=== PATIENT | female | born 1950 | race Caucasian/White ===

== ENCOUNTER 2017-02-11 16:12 | Emergency (ER) | payer MEDICARE, MEDICAID ==
[~2017-02-11] VITALS: Ht 162.6 cm; Wt 81.6 kg
--- NOTE | 2017-02-11 16:20 | NUR ---
BBPA [facility] C/O OF LEFT HIP AND LEFT FLANK PAIN DENIES FALL. NOTED WITH MULTIPLE COMPLAINTS- WHEEZING, SOB. SATING AT 95% RA. AT BS FOR EVAL. VSS. SAFETY AND COMFORT MEASURES PROVIDED. WILL MONITOR.
[2017-02-11 16:30] LABS: BASOPHILS # (AUTO) 0.1 /CMM (0.0-0.2); BASOPHILS % (AUTO) 0.9 % (0.0-2.0); EOSINOPHILS # (AUTO) 0.1 /CMM (0.0-0.7); EOSINOPHILS % (AUTO) 1.5 % (0.0-6.0); HEMATOCRIT 40 % (33-45); HEMOGLOBIN 13.5 g/dL (11.5-14.8); LYMPHOCYTES % (AUTO) 32.6 % (20.0-44.0); MEAN CORPUSCULAR HEMOGLOBIN 31 PG (26.0-33.0); MEAN CORPUSCULAR HGB CONC 34 g/dl (31.0-36.0); MEAN CORPUSCULAR VOLUME 93 fL (82-100); MONOCYTES # (AUTO) 0.7 /CMM (0.1-1.30); MONOCYTES % (AUTO) 7.7 % (2.0-12.0); NEUTROPHILS # (AUTO) 5.4 /CMM (1.8-8.9); NEUTROPHILS % (AUTO) 57.3 % (43.0-81.0); PLATELET COUNT (AUTO) 144 /CMM (150-450); RDW COEFFICIENT OF VARIATION 12.8 (11.5-15.0); RED BLOOD CELL COUNT(AUTO) 4.32 MIL/uL (4.0-5.2); WHITE BLOOD COUNT (AUTO) 9.3 K/uL (4.3-11.0)
[2017-02-11] MEDS ORDERED: methylPREDNISolone SOD SUCC 125 MG/2ML VIAL IV ONE (16:30)
[2017-02-11] MEDS ORDERED: IPRATROPIUM NEB FS 0.5 MG/2.5 ML AMPUL.NEB NEB ONE (16:30)
[2017-02-11] MEDS ORDERED: ALBUTEROL FS 2.5 MG/3 ML VIAL.NEB CONTNEB ONE (16:30)
--- NOTE | 2017-02-11 16:30 | NUR ---
PT REFUSED EKG AND INFLUENZA SWAB. AWARE.
[2017-02-11] MEDS ORDERED: methylPREDNISolone SOD SUCC 125 MG/2ML VIAL ONE (16:37)
[2017-02-11 16:39] LABS: CALCIUM, SERUM 9.8 mg/dL (8.5-10.1); CARBON DIOXIDE 29 mmol/L (21-32); CHLORIDE 102 mmol/L (98-107); CREATININE 0.9 mg/dL (0.6-1.3); GLUCOSE 176 mg/dL (74-106); SODIUM SERUM 137 mmol/L (136-145); UREA NITROGEN, BLOOD 13 mg/dL (7-18)
[2017-02-11 16:47] LABS: TROPONIN I < 0.017 ng/mL (0.00-0.056)
[2017-02-11] MEDS ORDERED: IPRATROPIUM NEB FS 0.5 MG/2.5 ML AMPUL.NEB ONE (16:50)
[2017-02-11] MEDS ORDERED: ALBUTEROL FS 2.5 MG/3 ML VIAL.NEB ONE (16:50)
--- NOTE | 2017-02-11 16:50 | NUR ---
RT AT BS- PT REFUSED BREATHING TX.
[2017-02-11 16:52] LABS: B-TYPE NATRIURETIC PEPTIDE 184 PG/ML (0-125)
--- NOTE | 2017-02-11 16:56 | NUR ---
RT NOTE: ALBUTEROL AND ATROVENT DISPENSED AND PLACED ON PATIENT BUT SHE IMMEDIATELY REMOVED TX. PATIENT REFUSES TREATMENT AND THE PLACEMENT OF SP02 MONITOR. NURSE AWARE. Addendum: 02/11/17 at 1751 by DAY STOCK RT ALSO NOTIFIED PHARMACY. ZAKIA STATES THAT NO ACTION ON eMAR IS REQUIRED.
--- NOTE | 2017-02-11 17:15 | NUR ---
IV removed. Catheter intact and site benign. Pressure and 4x4 applied to site. No bleeding noted.
--- NOTE | 2017-02-11 17:57 | NUR ---
CALLED [facility] AND SPOKE TO JOEL DOAN 184 (TRIP#[id number]).
--- NOTE | 2017-02-11 18:52 | NUR ---
PT D/C BACK TO [facility]. STABLE CONDITION.
[2017-02-11 18:54] VITALS: BP 125/66
== END 2017-02-11 18:55 | disposition home or self-care (01) ==
LOC: ER 16:16
DX: R06.02 Shortness of breath (principal); E11.9 Type 2 diabetes mellitus without complications; F31.9 Bipolar disorder, unspecified; I10 Essential (primary) hypertension; J45.909 Unspecified asthma, uncomplicated; Z88.6 Allergy status to analgesic agent; Z88.8 Allergy status to other drugs, medicaments and biological substances
CPT/HCPCS: 36415; 71010; 80048; 83880; 84484; 85025; 93005; 96374; 99285; A4606; J2930; Z7610

== ENCOUNTER 2022-07-06 21:53 | Inpatient (IN) | payer MEDICARE, OTHER ==
[~2022-07-06] VITALS: Ht 165.1 cm; Wt 74.6 kg
--- NOTE | 2022-07-06 22:22 | NUR ---
SADIA FROM [facility], CC OF FEVER, SEPSIS, ALOC RA 78%, 15LPM NRB 98%, BS 555, pt to bed 8, placed on monitor. on 15l nonrbr. pending er provder jovanaal
[2022-07-06] MEDS ORDERED: VANCOMYCIN 1 GM in IV D5W 250 ML IV ONE (22:30)
[2022-07-06] MEDS ORDERED: CEFEPIME 2 GM in IV D5W 50 ML IV ONE (22:30)
[2022-07-06] MEDS ORDERED: VANCOMYCIN 1 GM VIAL ONE (22:38)
[2022-07-06] MEDS ORDERED: CEFEPIME 1 GM VIAL ONE ×2 (22:38→22:44)
--- NOTE | 2022-07-06 22:44 | NUR ---
pt to ct
[2022-07-06] MEDS ORDERED: ACETAMINOPHEN 650 MG/SUPP.RECT RC ONE ×2 (23:00→23:22)
[2022-07-06 23:32] LABS: BASOPHILS % (AUTO) 0.1 % (0.0-2.0); HEMATOCRIT 42 % (33-45); HEMOGLOBIN 13.7 g/dL (11.5-14.8); LYMPHOCYTES # (AUTO) 1.1 K/uL (0.8-4.8); MEAN CORPUSCULAR HGB CONC 33 g/dl (31.0-36.0); MEAN CORPUSCULAR VOLUME 97 fL (82-100); MONOCYTES # (AUTO) 2.5 K/uL (0.1-1.30); NEUTROPHILS # (AUTO) 12.2 K/uL (1.8-8.9); NEUTROPHILS % (AUTO) 76.9 % (43.0-81.0); PLATELET COUNT (AUTO) 310 K/uL (150-450); RED BLOOD CELL COUNT(AUTO) 4.31 MIL/uL (4.0-5.2); WHITE BLOOD COUNT (AUTO) 15.8 K/uL (4.3-11.0)
--- NOTE | 2022-07-06 23:33 | NUR ---
URINE AND COVID ANTIGEN SWAB COLLECTED AND SENT TO LAB
[2022-07-06 23:51] LABS: CALCIUM, SERUM 12.5 mg/dL (8.5-10.1); CARBON DIOXIDE 23 mmol/L (21-32); CHLORIDE 110 mmol/L (98-107); CREATININE 1.4 mg/dL (0.6-1.3); SODIUM SERUM 143 mmol/L (136-145); UREA NITROGEN, BLOOD 47 mg/dL (7-18)
[2022-07-06 23:54] LABS: GLUCOSE 476 mg/dL (74-106)
[2022-07-07] MEDS ORDERED: IV NS 0.9% 500 ML IV ONE
[2022-07-07 00:01] LABS: ALANINE AMINOTRANSFERASE 16 U/L (12-78); ALBUMIN 2.1 g/dL (3.4-5.0); ALKALINE PHOSPHATASE 89 U/L (46-116); ASPARTATE AMINOTRANSFERASE 22 U/L (15-37); BILIRUBIN,DIRECT 0.2 mg/dL (0.0-0.2); BILIRUBIN,TOTAL 0.4 mg/dL (0.2-1.0); TOTAL PROTEIN, SERUM 6.9 g/dL (6.4-8.2)
[2022-07-07 00:06] LABS: BILIRUBIN,URINE NEGATIVE (NEGATIVE); COLOR,URINE YELLOW (YELLOW); LEUKOCYTE ESTERASE ,URINE NEGATIVE (NEGATIVE); NITRITE, URINE NEGATIVE (NEGATIVE); PROTEIN,URINE NEGATIVE (NEGATIVE); UGLUCOSE 3+ mg/dL (NEGATIVE)
[2022-07-07 00:27] LABS: BACTERIA,URINE Rare /HPF (None Seen); RBC,URINE 0-2 /HPF (0-2); SQUAMOUS EPITHELIAL CELL,UR Few /HPF (None Seen)
[2022-07-07] MEDS ORDERED: IOHEXOL-350 100 ML VIAL IV ONE ×3 (00:43→01:22)
[2022-07-07] MEDS ORDERED: IV NS 0.9% 250 ML IV ONE ×2 (00:43→01:22)
[2022-07-07] MEDS ORDERED: CT SWABBABLE VALVE TRANS SET 1 EA INFUS.SET MC ONE (00:43)
[2022-07-07 01:15] LABS: THYROID STIMULATING HORMONE < 0.007 uIU/mL (0.358-3.74)
[2022-07-07 01:36] LABS: MAGNESIUM 2.3 mg/dL (1.8-2.4)
--- NOTE | 2022-07-07 03:17 | NUR ---
report given to bharat anthony
--- NOTE | 2022-07-07 03:42 | NUR ---
pt transported to 3rd floor
--- NOTE | 2022-07-07 04:30 | NUR ---
CHIP TESTEREGG SETTER NOTE ADMITTED THIS PATIENT FROM ER [facility] WITH ER STAFF @ 0350 WITH DIAGNOSIS OF SEPSIS. PATIENT IS AWAKE, ALERT AND ORIENTED X 1. ON O2 INHALATION @ 2 LPM VIA NASAL CANNULA SATURATING @ 92%. ON EXTERNAL CARDIAC MONITORING WHICH READS SINUS TACHYCARDIA HR-119 BPM. WITH IV ACCESS ON RIGHT AC 18g; PATENT, INTACT AND SALINE LOCKED. BODY AND SKIN ASSESSMENT DONE; PICTURES TAKEN AND PLACED TO CHART. WOUND CARE CONSULT ORDERED. NEEDS ANTICIPATED. ORIENTED TO STAFF, ROOM AND UNIT. INVENTORY OF PERSONAL BELONGINGS DONE. SAFETY PRECAUTIONS IMPLEMENTED: HEAD OF BED ELEVATED, CALL LIGHT AND TABLE WITHIN REACH, SIDE RAILS UP X 3, BED IN LOWEST AND LOCKED POSITION. WILL CONTINUE TO MONITOR THROUGHOUT SHIFT.
--- NOTE | 2022-07-07 05:55 | NUR ---
RN NOTE CALLED RAPID RESPONSE TEAM. PATIENT IS DESATURATING FROM 92 TO 88% AND DIFFICULT TO AROUSE. O2 INHALATION INCREASED TO 6 LPM; SATING @ 97%. BLOOD SUGAR CHECKED: 410 MG/DL. VY MANE NP MADE AWARE. WITH ORDERS MADE AND CARRIED OUT. ABG DONE. PATIENT FOR CT OF THE HEAD WO CONTRAST. WILL CONTINUE TO MONITOR PATIENT.
[2022-07-07] MEDS ORDERED: ACETAMINOPHEN 325 MG TABLET PO PRN (06:00)
[2022-07-07] MEDS ORDERED: DEXTROSE 50%-WATER 50 ML DISP.SYRIN IV PRN ×2 (06:00→10:30)
[2022-07-07] MEDS ORDERED: IV NS 0.9% 1,000 ML IV PRN (06:00)
[2022-07-07] MEDS ORDERED: MAG HYDROX/AL HYDROX/SIMETH 30 ML UDC PO PRN (06:00)
[2022-07-07] MEDS ORDERED: ONDANSETRON HCL/PF 4 MG/2 ML VIAL IVP PRN (06:00)
[2022-07-07 06:18] LABS: ABG BASE EXCESS -2.6 mmol/L; ABG OXYGEN SATURATION 95.3 % (92.0-98.5); ABG PCO2 37.6 mmHg (35.0-45.0); ABG PH 7.385 (7.350-7.450); ABG PO2 82.7 mmHg (75.0-100.0); AaDO2 188.2 mmHg; COHb 0.9 % (0.5-1.5); MetHb 0.2 % (0.0-1.5); O2Hb 94.3 % (94.0-97.0); SITE, ABG Right Radial; VENT MODE, BG NASAL CANNULA 44%
[2022-07-07] MEDS: INSULIN REGULAR, HUMAN 100 UNIT/ML 3 ML VIAL SQ PRN ×4 (06:41→16:36)
[2022-07-07] MEDS ORDERED: BLOOD SUGAR DIAGNOSTIC 1 EACH STRIP IN SCH (07:30)
--- NOTE | 2022-07-07 07:30 | NUR ---
UPSET OPERATOR CLOSING NOTE PATIENT IS ASLEEP; AROUSABLE TO PAIN STIMULI. ALERT AND ORIENTED X 1 WHEN AWAKE. STILL ON O2 INHALATION @ 6 LPM VIA NASAL CANNULA SATURATING @ 97%. ON EXTERNAL CARDIAC MONITORING WHICH READS SINUS TACHYCARDIA HR-109 BPM. WITH IV ACCESS ON RIGHT AC 18g; PATENT AND INTACT INFUSING WITH NS 1L REGULATED @ 75 ML/HR; FLUSHES WELL. SAFETY PRECAUTIONS MAINTAINED: HEAD OF BED ELEVATED, CALL LIGHT AND TABLE WITHIN REACH, SIDE RAILS UP X 3, BED IN LOWEST AND LOCKED POSITION. ENDORSED TO JASON DIXON FOR VVIIAN.
[2022-07-07] MEDS: ENOXAPARIN SODIUM 40 MG/0.4 ML DISP.SYRIN SQ SCH (07:32)
--- NOTE | 2022-07-07 07:33 | NUR ---
RN OPENING NOTE RECEIVED PATIENT IN BED LETHARGIC, AROUSABLE TO PAINFUL STIMULI. ON O2 INHALATION @6LPM VIA N/C. NO SOB NOTED, BREATHING EVEN AND UNLABORED. ON CARDIAC MONITORING SHOWING SINUS TACH HR @109. NO S/SX OF ACUTE DISTRESS NOTED. NOTED WITH IV ACCESS ON LEFT AC #18G, INTACT AND PATENT WITH NS @75 ML/HR RUNNING. SAFETY MEASURE IN PLACE. BED IN LOW AND LOCKED POSITION, SIDE RAILS UP X2, CALL LIGHT PLACED WITHIN EASY REACH. WILL CONTINUE TO MONITOR PATIENT.
[2022-07-07 08:00] VITALS: BP 136/69
[2022-07-07 08:18] LABS: BASOPHILS # (AUTO) 0.1 K/uL (0.0-0.2); BASOPHILS % (AUTO) 0.4 % (0.0-2.0); HEMATOCRIT 41 % (33-45); HEMOGLOBIN 12.8 g/dL (11.5-14.8); LYMPHOCYTES # (AUTO) 0.7 K/uL (0.8-4.8); LYMPHOCYTES % (AUTO) 4.6 % (20.0-44.0); MEAN CORPUSCULAR HGB CONC 32 g/dl (31.0-36.0); MEAN CORPUSCULAR VOLUME 100 fL (82-100); MONOCYTES # (AUTO) 1.6 K/uL (0.1-1.30); MONOCYTES % (AUTO) 10.1 % (2.0-12.0); NEUTROPHILS # (AUTO) 13.8 K/uL (1.8-8.9); NEUTROPHILS % (AUTO) 84.9 % (43.0-81.0); PLATELET COUNT (AUTO) 277 K/uL (150-450); RED BLOOD CELL COUNT(AUTO) 4.08 MIL/uL (4.0-5.2); WHITE BLOOD COUNT (AUTO) 16.2 K/uL (4.3-11.0)
[2022-07-07 08:29] LABS: CALCIUM, SERUM 12.7 mg/dL (8.5-10.1); CARBON DIOXIDE 23 mmol/L (21-32); CHLORIDE 113 mmol/L (98-107); SODIUM SERUM 146 mmol/L (136-145); UREA NITROGEN, BLOOD 49 mg/dL (7-18)
[2022-07-07 08:34] LABS: GLUCOSE 467 mg/dL (74-106)
[2022-07-07] MEDS: CEFEPIME 2 GM in IV D5W 100 ML IV SCH ×2 (09:30→20:58)
--- NOTE | 2022-07-07 10:04 | NUR ---
WOUND CARE CONSULT: PT PRESENTS WITH SACRAL DEEP TISSUE INJURY EXTENDING TO BUTTOCKS WELL RT HEEL INTACT BLISTER, PRESENT ON ADMISSION. DR ZAIN ROBERT CALLED FOR SURGICAL CONSULT AND DR BRITO FOR DPM CONSULT. DISCUSSED SKIN PROTECTION AND WOUND CARE RECOMMENDATIONS WITH NURSING STAFF. PT TO BE PLACED ON TANYA ISOFLEX LOW AIRLOSS BED. IN AGREEMENT WITH PLAN OF CARE. Addendum: 07/07/22 at 1005 by VÍCTOR SARMIENTO WNDNU Amended: Links added.
[2022-07-07] MEDS: BLOOD SUGAR DIAGNOSTIC 1 EACH STRIP VI SCH ×3 (11:24→21:53)
[2022-07-07] MEDS: IV 1/2NS 1000 ML 1,000 ML IV PRN (11:50)
[2022-07-07] MEDS: VANCOMYCIN HCL 0.75 GM in IV D5W 250 ML IV SCH ×2 (11:51→23:39)
[2022-07-07] MEDS ORDERED: PROSOURCE / PROSTAT (PYXIS) 30 ML UDC GT SCH (13:00)
[2022-07-07 16:00] VITALS: BP 107/70
[2022-07-07] MEDS: PROSOURCE / PROSTAT (PYXIS) 30 ML UDC PO SCH (17:00)
--- NOTE | 2022-07-07 19:00 | NUR ---
RN CLOSING NOTE PATIENT IN BED ASLEEP, NOW EASILY AROUSED. REMAINS ON O2 INHALATION @6LPM VIA N/C. NO SOB NOTED, BREATHING EVEN AND UNLABORED. NOTED WITH OCCASIONAL COUGH, SUCTIONED ORAL SECRETIONS NEEDED. CONTINUE ON CARDIAC MONITORING SHOWING SINUS TACH HR @109. NO S/SX OF ACUTE DISTRESS NOTED. WITH IV ACCESS ON RIGHT HAND #22G, INTACT AND PATENT WITH NS @75 ML/HR RUNNING. SAFETY MEASURE MAINTAINED. HOB ELEVATED AT 40 DEGREES. BED IN LOW AND LOCKED POSITION, SIDE RAILS UP X2, CALL LIGHT PLACED WITHIN EASY REACH. WILL ENDORSE TO NEXT SHIFT FOR VIVIAN.
--- NOTE | 2022-07-07 19:30 | NUR ---
MOBILE EQUIPMENT MECHANIC OPENING NOTES - RECEIVED PATIENT SLEEPING, OPENS EYES ON DEEP PAIN, LETHARGIC. BREATHING EVEN AND NON-LABORED, ON O2 AT 6LPM VIA NASAL CANULA. NOT IN APPARENT DISTRESS. NO PAIN OR DISCOMFORT NOTED AT THIS TIME. ON TELE MONITOR READING SINUS TACHYCARDIA AT 112 BPM. HAS RIGHT HAND IV ACCESS #22G WITH 0.45%NS RUNNING AT 75 ML/HR. NO S/S OF INFILTRATION NOTED. HOB ELEVATED AT 40 DEGREES. SAFETY MEASURES IN PLACE: BED LOCKED AND IN LOW POSITION, SIDE RAILS UP X2, CALL LIGHT WITHIN REACH. WILL CONTINUE PLAN OF CARE.
[2022-07-07 20:00] VITALS: BP 142/67
[2022-07-07] MEDS: *INSULIN REGULAR(HUMULIN R)HUM 100 UNIT/ML VIAL SQ PRN (21:57)
[2022-07-08] VITALS (7 sets, daily range): BP systolic 130–153; BP diastolic 64–76
[2022-07-08] MEDS: ENOXAPARIN SODIUM 40 MG/0.4 ML DISP.SYRIN SQ SCH (06:15)
[2022-07-08] MEDS: IV 1/2NS 1000 ML 1,000 ML IV PRN ×2 (06:17→21:12)
[2022-07-08] MEDS: INSULIN REGULAR, HUMAN 100 UNIT/ML 3 ML VIAL SQ PRN ×3 (06:33→17:54)
--- NOTE | 2022-07-08 06:44 | NUR ---
JASON NOTES: BLOOD SUGAR- 95/ NO INSULIN GIVEN PER SLIDING SCALE. Addendum: 07/08/22 at 0659 by KALEY REID RN WRONG POSTING INTENDED FOR PATIENT [id number]
[2022-07-08] MEDS: BLOOD SUGAR DIAGNOSTIC 1 EACH STRIP VI SCH ×4 (06:45→22:13)
--- NOTE | 2022-07-08 06:57 | NUR ---
FIRE PREVENTION ENGINEER CLOSING NOTES - PATIENT SLEEPING, OPENS EYES WHEN NAME IS CALLED. HOB KEPT AT 40 DEGREES. NO CARDIAC OR RESPIRATORY DISTRESS. AFEBRILE. SATURATING AT 95-97% ON 6LPM VIA NASAL CANULA. ON TELE MONITOR READING SINUS TACHYCARDIA AT 123 BPM. RIGHT HAND IV ACCESS INTACT, PATENT AND FLUSHING. TURNED AND REPOSITIONED EVERY 2 HOURS. ALL DUE MEDS GIVEN AND NEEDS ATTENDED. SAFETY MEASURES MAINTAINED. WILL ENDORSE TO NEXT SHIFT FOR VIVIAN.
--- NOTE | 2022-07-08 06:59 | NUR ---
RN NOTES: BLOOD SUGAR-308/ 12 UNITS INSULIN GIVEN PER SLIDING SCALE,
--- NOTE | 2022-07-08 07:00 | NUR ---
BRANCH ACCOUNT MANAGER CLOSING NOTES: PATIENT SLEEP IN BED COMFORTABLY, AROUSABLE TO VERBAL STIMULI, BED IN LOW POSITION CALL LIGHTS WITHIN WITHIN REACH, NO COMPLAIN OF PAIN AND DISCOMFORT AT THIS TIME, ON O2 INHALATION AT 4LPM SATURATING WELL, PATIENT ON TELE MONITOR- SR-115/ NO CHANGES HAS BEEN OBSERVED, IV LINE AT RIGHT HAND#22 WITH ONGOING 0.45NSS@75ML/HR INFUSING WELL, PATIENT TO REMAIN UPRIGHT WITH DOL170 DEGREE AT ALL TIME, ON ASPIRATION PRECAUTION, PATIENT KEPT CLEAN AND DRY ALL NEEDS MET ENDORSE TO INCOMING SHIFT.
[2022-07-08 07:16] LABS: BASOPHILS % (AUTO) 0.2 % (0.0-2.0); EOSINOPHILS % (AUTO) 0.1 % (0.0-6.0); HEMATOCRIT 35 % (33-45); HEMOGLOBIN 11.6 g/dL (11.5-14.8); LYMPHOCYTES # (AUTO) 1.4 K/uL (0.8-4.8); LYMPHOCYTES % (AUTO) 12.1 % (20.0-44.0); MEAN CORPUSCULAR HGB CONC 33 g/dl (31.0-36.0); MEAN CORPUSCULAR VOLUME 96 fL (82-100); MONOCYTES % (AUTO) 8.2 % (2.0-12.0); NEUTROPHILS # (AUTO) 9.3 K/uL (1.8-8.9); NEUTROPHILS % (AUTO) 79.4 % (43.0-81.0); PLATELET COUNT (AUTO) 199 K/uL (150-450); RED BLOOD CELL COUNT(AUTO) 3.65 MIL/uL (4.0-5.2); WHITE BLOOD COUNT (AUTO) 11.7 K/uL (4.3-11.0)
--- NOTE | 2022-07-08 07:30 | NUR ---
CONTRACTS REPRESENTATIVE OPENING NOTES: RECEIVED PATIENT SLEEPING IN BED COMFORTABLY, AO X0, LETHARGIC, AROUSABLE TO VERBAL STIMULI, BED IN LOW POSITION CALL LIGHTS WITHIN WITHIN REACH, NO SIGNS OF PAIN AND DISCOMFORT AT THIS TIME, ON O2 INHALATION AT 4LPM SATURATING WELL, NO SIGNS OF RESPIRATORY DISTRESS, PATIENT ON TELE MONITOR- ST-115/ NO CHANGES HAS BEEN OBSERVED, IV LINE AT RIGHT HAND#22 WITH ONGOING 0.45NSS@75ML/HR INFUSING WELL, PATIENT TO REMAIN UPRIGHT WITH HOB ELEVATED 45 DEGREES AT ALL TIME, ON ASPIRATION PRECAUTION, PATIENT KEPT CLEAN AND DRY. WILL ADMINISTER SCHEDULED MEDS PRESCRIBED.
[2022-07-08 07:35] LABS: CALCIUM, SERUM 12.2 mg/dL (8.5-10.1); CREATININE 0.8 mg/dL (0.6-1.3); MAGNESIUM 1.5 mg/dL (1.8-2.4); PHOSPHORUS 1.6 mg/dL (2.5-4.9); POTASSIUM 4.6 mmol/L (3.5-5.1)
[2022-07-08] MEDS: CEFEPIME 2 GM in IV D5W 100 ML IV SCH ×2 (08:35→21:11)
[2022-07-08] MEDS: PROSOURCE / PROSTAT (PYXIS) 30 ML UDC PO SCH ×3 (09:04→17:38)
[2022-07-08] MEDS ORDERED: MAGNESIUM OXIDE 400 MG TABLET PO ONE (10:30)
[2022-07-08] MEDS: VANCOMYCIN HCL 0.75 GM in IV D5W 250 ML IV SCH (11:30)
--- NOTE | 2022-07-08 12:49 | NUR ---
PT SEEN AND EXAMINED BY IRASEMA CHOI. JIMBO AWARE OF PT BLOOD GLUCOSE RESULTS. NO FURTHER ORDERS GIVEN.
[2022-07-08] MEDS ORDERED: BISA10SU11 RC (14:10)
[2022-07-08] MEDS ORDERED: LISI10TA29 PO (14:10)
[2022-07-08] MEDS ORDERED: METF-440 PO (14:10)
[2022-07-08] MEDS ORDERED: RISP0.2515 PO (14:10)
[2022-07-08] MEDS ORDERED: DIVA-76 PO (14:10)
[2022-07-08] MEDS ORDERED: DIVA-78 PO (14:10)
[2022-07-08] MEDS ORDERED: MONT10TA22 PO (14:10)
[2022-07-08] MEDS ORDERED: DOCU-141 PO (14:10)
[2022-07-08] MEDS ORDERED: ZOLP5TAB8 PO (14:10)
[2022-07-08] MEDS ORDERED: INSU100V28 SQ (14:10)
[2022-07-08] MEDS ORDERED: NA P133E RC (14:10)
[2022-07-08] MEDS ORDERED: INSU100V7 SQ (14:10)
[2022-07-08] MEDS ORDERED: HYDR-3980 PO (14:10)
[2022-07-08] MEDS ORDERED: MAGN400O6 PO (14:10)
[2022-07-08] MEDS ORDERED: POLY17PO4 PO (14:10)
[2022-07-08] MEDS ORDERED: ACET-868 PO (14:10)
[2022-07-08] MEDS ORDERED: FLUT16SP (14:10)
[2022-07-08] MEDS ORDERED: K PHOS NEUTRAL 250 MG TABLET PO ONE ×2 (15:30)
[2022-07-08] MEDS ORDERED: NA PHOS,M-B/NA PHOS,DI-BA 1 EA ENEMA RC PRN (15:30)
[2022-07-08] MEDS ORDERED: MAGNESIUM HYDROXIDE 30 ML UDC PO PRN (15:30)
[2022-07-08] MEDS ORDERED: BISACODYL SUPP (10 MG) 10 MG/SUPP.RECT SUPP.RECT RC PRN (15:30)
[2022-07-08] MEDS ORDERED: ACETAMINOPHEN 325 MG TABLET PO PRN (15:30)
[2022-07-08] MEDS: DOCUSATE SODIUM 100 MG CAPSULE PO SCH (17:38)
[2022-07-08] MEDS: FLUTICASONE PROPIONATE 16 GM BOTTLE NS SCH (17:42)
[2022-07-08] MEDS ORDERED: METOPROLOL TARTRATE INJ 5 MG/5 ML AMPUL IVP ONE (18:00)
--- NOTE | 2022-07-08 19:13 | NUR ---
SORORITY MOTHER NOTES PT IN BED, LETHARGIC, AROUSABLE, IV FLUIDS INFUSING WELL, NO SIGN OF PAIN, NOTED HR AT 130s, DR. BUCIO INFORMED, ORDERED METOPROLOL IV ONCE BUT PER PHARMACY, MED CANNOT BE ADMINISTERED IN TELE FLOOR, DR. BUCIO INFORMED AND CHANGED DOSE TO PO, PER DR. PITTMAN, PT IS COVID POSITIVE FROM HER TEST IN HER SNF, PT WAS RAPID NEGATIVE AT THE E.R., AWAITING BED FROM [facility], DR. BUCIO INFORMED, PLACED PT IN ISOLATION PRECAUTIONS, KEPT HOB ELEVATED, ON O2 AT 6LPM VIA N/C, WITH O2 SAT OF 94%, AFEBRILE AT THIS TIME, PM CARE PROVIDED, KEPT COMFORTABLE, WILL ENDORSE TO BOAT PULLER RN FOR VIVIAN.
--- NOTE | 2022-07-08 19:15 | NUR ---
RN opening notes Received Pt from morning nurse. Pt is resting in bed comfortably. Pt is alert and oriented and lethargic. On 6 L NC. No SOB. No S/S of distress noted. tele monitor showed s.tachy HR at 144. Simin Beth MD is aware and informed per am nurse. Pt is covid positive per am nurse. IV site at R hand # 20 is clean, intact and infuising well 1/2ns@ 75 ml/hr. safety precautions is maintained. Bed at low position, brakes locked, side rails upX2, hob elevated, bed alarm is on and call light is within reach. awaiting for bed in [facility]. will continue to monitor.
[2022-07-08] MEDS ORDERED: METOPROLOL TARTRATE 25 MG TABLET PO ONE (19:30)
--- NOTE | 2022-07-08 19:45 | NUR ---
RN notes Charge nurse informed to transfer Pt to room 105 [facility].
--- NOTE | 2022-07-08 20:08 | NUR ---
RN notes administered metoprolol as ordered one time for HR 144. BP 150/76.
--- NOTE | 2022-07-08 20:29 | NUR ---
RN notes Report given to Silas RN [facility] nurse for VIVIAN. Pt transfer to room 105.
--- NOTE | 2022-07-08 20:50 | NUR ---
RN notes Transferred Pt to room 105 with ACLS protocol. report given to JASON Rosen.
--- NOTE | 2022-07-08 20:50 | NUR ---
KATHRINE note Received pt via [email or web address], accompanied by 2 RNs, o2 via NC @ 6L, breathing even and unlabored, 0 s/s of pain, isolation protocol noted, pt transfeer Addendum: 07/08/22 at 2322 by JOE DANG LVN * transferred to room 105, bed bath given at this time, VS stable, safety precautions in place
--- NOTE | 2022-07-08 21:10 | NUR ---
0 Received patient from via bed for r/o covid. Placed patient in room 105 and connected to wall O2 at 6 liters via NC. Vital signs taken and recorded. O2 sat at 96%. Noted with temp of 101.3. Complete bed bath provided and placed on cooling measures. Patient tolerated procedure well. HOB elevated for maximum oxygenation. New IV access inserted on left hand. Kept comfortable. Placed on covid isolation pending PCR result. Patient being closely monitored.
[2022-07-08] MEDS: LISINOPRIL (10MG) 10 MG TABLET PO SCH (21:57)
[2022-07-08] MEDS: MONTELUKAST SODIUM (10MG) 10 MG TABLET PO SCH (21:57)
[2022-07-08] MEDS: *INSULIN REGULAR(HUMULIN R)HUM 100 UNIT/ML VIAL SQ PRN (22:17)
[2022-07-09] MEDS: VANCOMYCIN HCL 0.75 GM in IV D5W 250 ML IV SCH (00:24)
[2022-07-09] MEDS: ENOXAPARIN SODIUM 40 MG/0.4 ML DISP.SYRIN SQ SCH (05:56)
--- NOTE | 2022-07-09 05:57 | NUR ---
kenneth banegas for bleeding on surgical incision wound Addendum: 07/09/22 at 0648 by JOE DANG LVN WRONG PT
--- NOTE | 2022-07-09 06:49 | NUR ---
ENGINEER SECOND ASSISTANT CLOSING NOTE PT RESTING IN BED, AFEBRILE, BREATHING EVEN AND UNLABORED, ON O2 VIA NC, NAD NOTED AT THIS TIME, ALL DUE MEDS GIVEN PER MD ORDERS, TOLERATED WELL, ALL BASIC NEEDS MET AND ANTICIPATED, ALL SAFETY PRECAUTIONS IN PLACE, WILL CONTINUE TO MONITOR
[2022-07-09] MEDS: BLOOD SUGAR DIAGNOSTIC 1 EACH STRIP VI SCH ×4 (07:48→22:08)
[2022-07-09 07:59] LABS: CALCIUM, SERUM 11.6 mg/dL (8.5-10.1); CARBON DIOXIDE 29 mmol/L (21-32); CHLORIDE 114 mmol/L (98-107); CREATININE 0.8 mg/dL (0.6-1.3); GLUCOSE 273 mg/dL (74-106); PHOSPHORUS 2.7 mg/dL (2.5-4.9); POTASSIUM 4.6 mmol/L (3.5-5.1); SODIUM SERUM 148 mmol/L (136-145); UREA NITROGEN, BLOOD 41 mg/dL (7-18)
[2022-07-09 08:03] LABS: BASOPHILS % (AUTO) 0.2 % (0.0-2.0); EOSINOPHILS % (AUTO) 0.1 % (0.0-6.0); HEMATOCRIT 38 % (33-45); HEMOGLOBIN 12.5 g/dL (11.5-14.8); LYMPHOCYTES # (AUTO) 1.2 K/uL (0.8-4.8); LYMPHOCYTES % (AUTO) 15.6 % (20.0-44.0); MEAN CORPUSCULAR HGB CONC 33 g/dl (31.0-36.0); MEAN CORPUSCULAR VOLUME 96 fL (82-100); MONOCYTES # (AUTO) 0.8 K/uL (0.1-1.30); MONOCYTES % (AUTO) 10.6 % (2.0-12.0); NEUTROPHILS # (AUTO) 5.7 K/uL (1.8-8.9); NEUTROPHILS % (AUTO) 73.5 % (43.0-81.0); PLATELET COUNT (AUTO) 169 K/uL (150-450); RED BLOOD CELL COUNT(AUTO) 4.01 MIL/uL (4.0-5.2); WHITE BLOOD COUNT (AUTO) 7.8 K/uL (4.3-11.0)
[2022-07-09] MEDS: IV 1/2NS 1000 ML 1,000 ML IV PRN (08:16)
[2022-07-09] MEDS: DOCUSATE SODIUM 100 MG CAPSULE PO SCH (08:23)
[2022-07-09] MEDS: FLUTICASONE PROPIONATE 16 GM BOTTLE NS SCH ×2 (08:23→17:19)
[2022-07-09] MEDS: CEFEPIME 2 GM in IV D5W 100 ML IV SCH ×2 (08:23→22:07)
[2022-07-09] MEDS: POLYETHYLENE GLYCOL 3350 17 GM POWD.PACK PO SCH (08:24)
[2022-07-09] MEDS: PROSOURCE / PROSTAT (PYXIS) 30 ML UDC PO SCH ×3 (09:00→17:00)
[2022-07-09] MEDS: INSULIN REGULAR, HUMAN 100 UNIT/ML 3 ML VIAL SQ PRN ×2 (09:30→15:01)
[2022-07-09] MEDS ORDERED: VANCOMYCIN 1 GM in IV D5W 250 ML IV SCH (10:00)
--- NOTE | 2022-07-09 10:18 | NUR ---
CONFIRMED, PATIENT IS COVID POSITIVE AT THIS TIME
[2022-07-09] MEDS ORDERED: REMDESIVIR (CHARGED) 200 MG, *LOADING DOSE 1 EA in IV NS 0.9% 210 ML IV ONE ×2 (11:30→12:30)
[2022-07-09 13:08] LABS: ALKALINE PHOSPHATASE 997 U/L (46-116); ASPARTATE AMINOTRANSFERASE 17 U/L (15-37); BILIRUBIN,TOTAL 0.3 mg/dL (0.2-1.0); C-REACTIVE PROTEIN 7.3 mg/dL (0.0-0.9); CALCIUM, SERUM 11.5 mg/dL (8.5-10.1); CARBON DIOXIDE 24 mmol/L (21-32); CHLORIDE 113 mmol/L (98-107); CREATININE 0.8 mg/dL (0.6-1.3); POTASSIUM 4.1 mmol/L (3.5-5.1); SODIUM SERUM 145 mmol/L (136-145); UREA NITROGEN, BLOOD 42 mg/dL (7-18)
[2022-07-09 13:09] LABS: ALANINE AMINOTRANSFERASE 16 U/L (12-78); ALBUMIN 1.9 g/dL (3.4-5.0)
[2022-07-09 13:11] LABS: GLUCOSE 393 mg/dL (74-106)
[2022-07-09] MEDS: DEXAMETHASONE SOD PHOSPHATE 10 MG/ML VIAL IV SCH (14:46)
[2022-07-09] MEDS ORDERED: ENOXAPARIN SODIUM 30 MG/0.3 ML DISP.SYRIN SQ SCH (15:00)
[2022-07-09] MEDS: GLUCERNA SHAKE 237 ML CAN PO SCH (17:23)
[2022-07-09] MEDS: DOCUSATE SODIUM LIQ 100 MG/10 ML UDC PO SCH (18:00)
[2022-07-09] MEDS: *INSULIN REGULAR(HUMULIN R)HUM 100 UNIT/ML VIAL SQ PRN ×2 (18:19→22:11)
--- NOTE | 2022-07-09 19:30 | NUR ---
RN NOTE Report received from Jackie GOMEZ. Patient in bed, on high hicks's, AO x 1, appears lethargic, saturation at 98% on 6L via NC, ST on the monitor, HR is 111. IV line at R hand 22g patent and flushing well, saline locked. Safety measures and aspiration precautions implemented, bed is locked and at lowest position, HOB elevated, call light within reach of patient. Will continue to monitor and reassess for changes.
--- NOTE | 2022-07-09 19:50 | NUR ---
RN CLOSING NOTE PT RESTING IN BED, AFEBRILE, BREATHING EVEN AND UNLABORED, ON O2 VIA 6L NC, ALL DUE MEDS GIVEN PER MD ORDERS, TOLERATED WELL, HOB ELEVATED AT 40 DEGREES. ALL BASIC NEEDS MET AND ANTICIPATED, ALL SAFETY PRECAUTIONS IN PLACE, WILL ENDORSE CONTINUITY OF CARE TO VISITOR SERVICE ASSISTANT.
[2022-07-09 20:00] VITALS: BP 114/66
[2022-07-09] MEDS ORDERED: ENOXAPARIN SODIUM 40 MG/0.4 ML DISP.SYRIN SQ SCH (21:00)
[2022-07-09] MEDS: LISINOPRIL (10MG) 10 MG TABLET PO SCH (22:08)
[2022-07-09] MEDS: METOPROLOL TARTRATE 25 MG TABLET PO SCH (22:08)
[2022-07-09] MEDS: MONTELUKAST SODIUM (10MG) 10 MG TABLET PO SCH (22:08)
[2022-07-10] VITALS: BP 146/88
[2022-07-10 04:00] VITALS: BP 119/72
[2022-07-10 07:15] LABS: EOSINOPHILS % (AUTO) 0.1 % (0.0-6.0); HEMATOCRIT 40 % (33-45); HEMOGLOBIN 12.6 g/dL (11.5-14.8); LYMPHOCYTES # (AUTO) 1.7 K/uL (0.8-4.8); LYMPHOCYTES % (AUTO) 16.3 % (20.0-44.0); MEAN CORPUSCULAR HGB CONC 32 g/dl (31.0-36.0); MEAN CORPUSCULAR VOLUME 99 fL (82-100); MONOCYTES # (AUTO) 1.1 K/uL (0.1-1.30); MONOCYTES % (AUTO) 10.4 % (2.0-12.0); NEUTROPHILS # (AUTO) 7.7 K/uL (1.8-8.9); NEUTROPHILS % (AUTO) 73.2 % (43.0-81.0); PLATELET COUNT (AUTO) 148 K/uL (150-450); RED BLOOD CELL COUNT(AUTO) 4.05 MIL/uL (4.0-5.2); WHITE BLOOD COUNT (AUTO) 10.4 K/uL (4.3-11.0)
--- NOTE | 2022-07-10 07:15 | NUR ---
RN OPEN TELE NOTE: AWAKE. ALERT TO NAME. RESPONSIVE TO VERBAL STIMULI. MOIST ORAL MUCOSA. ON 02 6 LITERS PER MINUTE SATING AT 96%. BIOMEDICAL ENGINEERING PROFESSOR SINUS TACHY 107. IN ON RIGHT HAND G22 PATENT. NO S/S OF COMPLICATIONS. PURE WICK ON WITH YELLOW URINE. HOB ELEVATED, BILATERAL HALF SIDE RAILS UPX2. BED IN LOW POSITION, LOCKED, AND EXIT ALARM ON. CALL LIGHT IN REACH.
[2022-07-10 08:00] VITALS: BP 139/72
[2022-07-10] MEDS: CEFEPIME 2 GM in IV D5W 100 ML IV SCH ×2 (08:16→21:26)
[2022-07-10] MEDS: BLOOD SUGAR DIAGNOSTIC 1 EACH STRIP VI SCH ×4 (08:16→21:37)
[2022-07-10] MEDS: GLUCERNA SHAKE 237 ML CAN PO SCH ×2 (08:17→17:31)
[2022-07-10] MEDS: INSULIN REGULAR, HUMAN 100 UNIT/ML 3 ML VIAL SQ PRN ×3 (08:18→17:56)
[2022-07-10 08:41] LABS: ALBUMIN 1.8 g/dL (3.4-5.0); BILIRUBIN,TOTAL 0.2 mg/dL (0.2-1.0); CREATININE 0.6 mg/dL (0.6-1.3); POTASSIUM 4.7 mmol/L (3.5-5.1); TOTAL PROTEIN, SERUM 5.8 g/dL (6.4-8.2)
[2022-07-10 08:49] LABS: CALCIUM, SERUM 11.7 mg/dL (8.5-10.1)
[2022-07-10] MEDS ORDERED: DEXAMETHASONE SOD PHOSPHATE 10 MG/ML VIAL IV SCH (09:00)
[2022-07-10 09:45] LABS: ALBUMIN 1.9 g/dL (3.4-5.0); BILIRUBIN,DIRECT 0.1 mg/dL (0.0-0.2); BILIRUBIN,TOTAL 0.2 mg/dL (0.2-1.0); TOTAL PROTEIN, SERUM 5.9 g/dL (6.4-8.2)
[2022-07-10 09:45] LABS: C-REACTIVE PROTEIN 4.5 mg/dL (0.0-0.9)
[2022-07-10] MEDS: DEXAMETHASONE SOD PHOSPHATE 10 MG/ML VIAL IV SCH (09:58)
[2022-07-10] MEDS: POLYETHYLENE GLYCOL 3350 17 GM POWD.PACK PO SCH (09:58)
[2022-07-10] MEDS: METOPROLOL TARTRATE 25 MG TABLET PO SCH ×2 (09:59→21:27)
[2022-07-10] MEDS: DOCUSATE SODIUM LIQ 100 MG/10 ML UDC PO SCH ×2 (09:59→17:31)
[2022-07-10] MEDS: PROSOURCE / PROSTAT (PYXIS) 30 ML UDC PO SCH ×3 (10:00→17:31)
[2022-07-10] MEDS: ENOXAPARIN SODIUM 40 MG/0.4 ML DISP.SYRIN SQ SCH (10:01)
[2022-07-10] MEDS: FLUTICASONE PROPIONATE 16 GM BOTTLE NS SCH ×2 (10:02→17:32)
[2022-07-10] MEDS ORDERED: REMDESIVIR (CHARGED) 100 MG in IV NS 0.9% 230 ML IV SCH (11:30)
[2022-07-10 12:00] VITALS: BP 135/68
[2022-07-10] MEDS: REMDESIVIR (CHARGED) 100 MG in IV NS 0.9% 230 ML IV SCH (12:56)
[2022-07-10 16:00] VITALS: BP 127/69
--- NOTE | 2022-07-10 18:50 | NUR ---
RN CLOSING TELE NOTE: AWAKE, RESPONSIVE TO VERBAL STIMULI. MOIST ORAL MUCOSA. ON 02 6LPM NC SATING AT 98%. TAXI TRUCK DRIVER SINUS TACHY 117. IN ON RIGHT HAND PATENT. NO S/S OF COMPLICATIONS. TOTAL CARE PROVIDED. HOB ELEVATED, BILATERAL HALF SIDE RAILS UP X2. BED IN LOW POSITION, LOCKED, EXIT ALARM ON, CALL LIGHT IN REACH.
--- NOTE | 2022-07-10 18:59 | NUR ---
MICROSOFT DEVELOPER CLOSING NOTE: ALERT TIMES FOUR. AWAKE. PALE. RESPIRATIONS ARE EVEN AND UNLABORED AT ROOM AIR, SATING AT 95%. MOIST ORAL MUCOSA. LONG WALL SHEAR OPERATOR SINUS RHYTHM 68. IV ON RIGHT AC G18 WITH NS 100 ML/HR. CONTINENT OF URINE, UA WAS COLLECTED, STILL FOR OB COLLECTION. PATIENT TO BE NPO AFTER MN FOR US PELVIC COMPLETE. VISITED BY FRIENDS AND FAMILY DURING DAY. SPOKE TO DANNIE AT BLOOD BANK AND STATED HE HAS THE BLOOD AND THAT HE IS JUST TESTING IT FOR SECOND UNIT PRBC'S, TO GIVE HIM 15-20 MINUTES, PATIENT INFORMED. HOB ELEVATED, BILATERAL HALF SIDE RAILS UP X2. BED IN LOW POSITION, LOCKED, EXIT ALARM ON, CALL LIGHT IN REACH. Addendum: 07/10/22 at 1905 by SOHAM HOPE RN WRONG PATIENT DOCUMENTATION.
--- NOTE | 2022-07-10 19:10 | NUR ---
RN NOTE RECEIVED PT FOR CONTINUITY OF CARE. PATIENT A/OX1 IN NO S/SX OF ACUTE DISTRESS AT THIS TIME; CURRENTLY ON 6L OF O2 VIA NC; WITH 02 SAT >95% AT THIS TIME. WITH IV ACCESS ON R HAND #22 AND L HAND 20 BOTH PATENT, INTACT AND FLUSHING WELL. WITH PUREWICK UTILIZED FOR INCONTINENCE MGT. WILL ENSURE SAFETY MEASURES WITHIN THE SHIFT. PATIENT BED ALARM IS ON. HEAD OF BED ELEVATED. BED IS LOCKED, IN LOWEST POSITION AND SIDE RAILS UP. CALL LIGHT WITHIN REACH OF THE PATIENT. APPLICABLE ISOLATION PRECAUTIONS IN PLACE. WILL CONTINUE TO MONITOR AND REASSESS FOR ANY CHANGES AND WILL CARRY OUT ANY ONGOING AND ACTIVE MD ORDER.
[2022-07-10 20:00] VITALS: BP 132/79
[2022-07-10] MEDS: LISINOPRIL (10MG) 10 MG TABLET PO SCH (21:27)
[2022-07-10] MEDS: MONTELUKAST SODIUM (10MG) 10 MG TABLET PO SCH (21:27)
[2022-07-10] MEDS: *INSULIN REGULAR(HUMULIN R)HUM 100 UNIT/ML VIAL SQ PRN (21:37)
[2022-07-11] VITALS: BP 138/73
[2022-07-11 04:00] VITALS: BP 126/75
--- NOTE | 2022-07-11 04:00 | NUR ---
RN NOTE PATIENT REMAINED TO BE IN NO SIGNS OF ACUTE RESPIRATORY DISTRESS , VITAL SIGNS STABLE AT THIS TIME. REGULAR TURNING AND REPOSITIONING DONE AND AM PATIENT CARE RENDERED WILL CONTINUE TO MONITOR AND REASSESS FOR ANY CHANGES THROUGHOUT THE SHIFT.
--- NOTE | 2022-07-11 06:41 | NUR ---
RN CLOSING NOTE: PATIENT REMAINS IN ROOM IN NO SIGNS OF RESPIRATORY DISTRESS, PATIENT STILL NOW ON 4L OF 02 VIA NC, TOLERATING WELL SATURATING @ >95% SP02. ON PUREED DIET. SAFETY MEASURES IMPLEMENTED, BED IN LOWEST POSITION, LOCKED, SIDE RAILS UP, CALL LIGHT WITHIN REACH. ALL NEEDS AND ORDERS ADDRESSED DURING THE SHIFT. IV ACCESS MAINTAINED INTACT, SECURED AND FLUSHING WELL. ALL DUE MEDS GIVEN ORDERED & SCHEDULED ; PATIENT TOLERATED WELL. PATIENT KEPT CLEAN AND COMFORTABLE WITHIN THE SHIFT. PATIENT ENDORSED TO INCOMING SHIFT RN WITH STABLE VITAL SIGN AND FOR CONTINUITY OF CARE.
--- NOTE | 2022-07-11 07:40 | NUR ---
STAFF PHYSICIAN OPENING NOTE REVEIVED PT IN BED. PT ALERT AND ORIENTED X1. ON TELE MONITOR SINUS TACHYCARDIA 101.NO SIGNS OF PAIN OR DISCOMFORT NOTED AT THIS TIME. PT ON 4L NASAL CANNULA TOLERATING AT 98%.PT HAS RIGHT HAND 22 GUAGE. IV INTACT, PATENT AND FLUSHING WELL. ALL SAFETY EMASURES IN PLACE. BED LOCKED AT LOWEST POSITION. SIDE RAILS UP X2. BED ALAMR ON.
[2022-07-11] MEDS: BLOOD SUGAR DIAGNOSTIC 1 EACH STRIP VI SCH ×4 (07:45→23:12)
[2022-07-11 08:00] VITALS: BP 140/77
[2022-07-11] MEDS: GLUCERNA SHAKE 237 ML CAN PO SCH ×2 (09:43→17:40)
[2022-07-11] MEDS: PROSOURCE / PROSTAT (PYXIS) 30 ML UDC PO SCH ×3 (09:43→17:47)
[2022-07-11] MEDS: DEXAMETHASONE SOD PHOSPHATE 10 MG/ML VIAL IV SCH (09:44)
[2022-07-11] MEDS: CEFEPIME 2 GM in IV D5W 100 ML IV SCH ×2 (09:44→21:51)
[2022-07-11] MEDS: POLYETHYLENE GLYCOL 3350 17 GM POWD.PACK PO SCH (09:44)
[2022-07-11] MEDS: DOCUSATE SODIUM LIQ 100 MG/10 ML UDC PO SCH ×2 (09:44→17:21)
[2022-07-11] MEDS: METOPROLOL TARTRATE 25 MG TABLET PO SCH ×2 (09:45→21:50)
[2022-07-11] MEDS: INSULIN REGULAR, HUMAN 100 UNIT/ML 3 ML VIAL SQ PRN ×3 (09:46→17:48)
[2022-07-11] MEDS: FLUTICASONE PROPIONATE 16 GM BOTTLE NS SCH ×2 (09:47→17:22)
--- NOTE | 2022-07-11 11:55 | NUR ---
rn note notified twisting machine operator malinda bishop for clarification if okay to continue giving lovenox 07/10 hgb 10.4, hct 40, and platelets 148. malinda bishop said okay to give
[2022-07-11 12:00] VITALS: BP 151/79
[2022-07-11] MEDS: REMDESIVIR (CHARGED) 100 MG in IV NS 0.9% 230 ML IV SCH (12:42)
[2022-07-11] MEDS: ENOXAPARIN SODIUM 40 MG/0.4 ML DISP.SYRIN SQ SCH (12:44)
[2022-07-11 14:46] LABS: BASOPHILS % (AUTO) 0.2 % (0.0-2.0); HEMATOCRIT 42 % (33-45); HEMOGLOBIN 13.1 g/dL (11.5-14.8); LYMPHOCYTES # (AUTO) 0.9 K/uL (0.8-4.8); LYMPHOCYTES % (AUTO) 8.1 % (20.0-44.0); MEAN CORPUSCULAR HGB CONC 31 g/dl (31.0-36.0); MEAN CORPUSCULAR VOLUME 101 fL (82-100); MONOCYTES # (AUTO) 0.4 K/uL (0.1-1.30); MONOCYTES % (AUTO) 3.1 % (2.0-12.0); NEUTROPHILS # (AUTO) 10.4 K/uL (1.8-8.9); NEUTROPHILS % (AUTO) 88.6 % (43.0-81.0); PLATELET COUNT (AUTO) 213 K/uL (150-450); WHITE BLOOD COUNT (AUTO) 11.7 K/uL (4.3-11.0)
[2022-07-11 15:09] LABS: ALBUMIN 2.2 g/dL (3.4-5.0); BILIRUBIN,DIRECT 0.1 mg/dL (0.0-0.2); BILIRUBIN,TOTAL 0.3 mg/dL (0.2-1.0); CALCIUM, SERUM 11.8 mg/dL (8.5-10.1); CREATININE 0.9 mg/dL (0.6-1.3); POTASSIUM 4.2 mmol/L (3.5-5.1); TOTAL PROTEIN, SERUM 6.5 g/dL (6.4-8.2)
[2022-07-11 15:21] LABS: C-REACTIVE PROTEIN 1.8 mg/dL (0.0-0.9)
--- NOTE | 2022-07-11 15:47 | NUR ---
lab called in stated that BS 464 primary nurse check finger stick BS 375 patient is on Decadron Simin notified and stated ok
[2022-07-11 16:00] VITALS: BP 130/63
--- NOTE | 2022-07-11 19:51 | NUR ---
EXHIBIT BUILDER CLOSING NOTE PT IN BED. HEAD OF BED ELEVATED. PT ALERT AND ORIENTED X1. ON TELE MONITOR SINUS TACHYCARDIA .NO SIGNS OF PAIN OR DISCOMFORT NOTED AT THIS TIME. PT ON 4L NASAL CANNULA TOLERATING AT 100%.PT HAS LEFT AC 22 GUAGE. IV INTACT, PATENT AND FLUSHING WELL. PT ON COVID ISOLATION PRECAUTIONS. ALL SAFETY EMASURES IN PLACE. BED LOCKED AT LOWEST POSITION. SIDE RAILS UP X2. BED ALAMR ON.ENDORSED TO AD OPERATIONS ASSOCIATE RN FOR CONTUITY OF CARE.
[2022-07-11 20:00] VITALS: BP 128/69
--- NOTE | 2022-07-11 20:01 | NUR ---
WARP DOFFER OPENING NOTE PATIENT AWAKE IN BED, ALERT/ORIENTED X 1. PATIENT ON TELE MONITOR READING SINUS TACHY, HR: 113. PATIENT STABLE ON 4 L OF O 2 VIA NASAL CANNULA, NO S/S OF DISTRESS OR SOB NOTED, BREATHING EVEN AND UNLABORED. IV ACCESS ON LAC #22G INTACT AND SALINE LOCKED. PUREWICK IN PLACE. SAFETY MEASURES IN PLACE: CALL LIGHT WITHIN REACH, SIDE RAILS UP X 3, BED LOCKED IN LOWEST POSITION, HOB ELEVATED, BED ALARM ON. DROPLET/CONTACT PRECAUTIONS IN PLACE. WILL CONTINUE TO MONITOR PATIENT
[2022-07-11] MEDS: MONTELUKAST SODIUM (10MG) 10 MG TABLET PO SCH (23:11)
[2022-07-11] MEDS: LISINOPRIL (10MG) 10 MG TABLET PO SCH (23:12)
[2022-07-11] MEDS: *INSULIN REGULAR(HUMULIN R)HUM 100 UNIT/ML VIAL SQ PRN (23:14)
[2022-07-12] VITALS: BP 119/65
[2022-07-12 04:00] VITALS: BP 133/73
[2022-07-12 06:14] LABS: BASOPHILS % (AUTO) 0.4 % (0.0-2.0); HEMATOCRIT 44 % (33-45); LYMPHOCYTES # (AUTO) 2.2 K/uL (0.8-4.8); LYMPHOCYTES % (AUTO) 17.7 % (20.0-44.0); MEAN CORPUSCULAR HGB CONC 32 g/dl (31.0-36.0); MEAN CORPUSCULAR VOLUME 97 fL (82-100); MONOCYTES % (AUTO) 8.1 % (2.0-12.0); NEUTROPHILS # (AUTO) 9.2 K/uL (1.8-8.9); NEUTROPHILS % (AUTO) 73.8 % (43.0-81.0); PLATELET COUNT (AUTO) 218 K/uL (150-450); RED BLOOD CELL COUNT(AUTO) 4.51 MIL/uL (4.0-5.2); WHITE BLOOD COUNT (AUTO) 12.5 K/uL (4.3-11.0)
[2022-07-12 06:50] LABS: ALBUMIN 2.3 g/dL (3.4-5.0); BILIRUBIN,DIRECT 0.1 mg/dL (0.0-0.2); BILIRUBIN,TOTAL 0.3 mg/dL (0.2-1.0); CALCIUM, SERUM 12.1 mg/dL (8.5-10.1); CREATININE 0.9 mg/dL (0.6-1.3); TOTAL PROTEIN, SERUM 6.6 g/dL (6.4-8.2)
--- NOTE | 2022-07-12 07:26 | NUR ---
LEARNING AND DEVELOPMENT ADMINISTRATOR CLOSING NOTE PATIENT AWAKE IN BED, ALERT/ORIENTED X 1. PATIENT ON TELE MONITOR READING SINUS TACHY, HR: 108. PATIENT TITRATED DOWN TO 3L OF O 2 VIA NASAL CANNULA, NO S/S OF DISTRESS OR SOB NOTED, BREATHING EVEN AND UNLABORED. IV ACCESS ON LAC #22G INTACT AND SALINE LOCKED. PUREWICK IN PLACE WITH 500 ML OUTPUT. MEDICATIONS GIVEN ORDERED, PT NEEDS MET THROUGHOUT SHIFT, NO SIGNIFICANT CHANGES THIS SHIFT. SAFETY MEASURES IN PLACE: CALL LIGHT WITHIN REACH, SIDE RAILS UP X 3, BED LOCKED IN LOWEST POSITION, HOB ELEVATED, BED ALARM ON. DROPLET/CONTACT PRECAUTIONS MAINTAINED. ENDORSED TO DAYSHIFT RN FOR CONTINUITY OF CARE
[2022-07-12] MEDS: GLUCERNA SHAKE 237 ML CAN PO SCH ×2 (07:29→16:16)
[2022-07-12] MEDS: BLOOD SUGAR DIAGNOSTIC 1 EACH STRIP VI SCH ×4 (07:47→22:35)
[2022-07-12] MEDS: *INSULIN REGULAR(HUMULIN R)HUM 100 UNIT/ML VIAL SQ PRN ×3 (07:50→22:39)
--- NOTE | 2022-07-12 07:55 | NUR ---
SERVICE TEAM LEADER OPENING NOTE PATIENT AWAKE IN BED, ALERT/ORIENTED X 1. PATIENT ON TELE MONITOR READING SR. PATIENT STABLE ON 3L OF O 2 VIA NASAL CANNULA, NO S/S OF DISTRESS OR SOB NOTED, BREATHING EVEN AND NON LABORED. IV ACCESS ON LAC #22G INTACT AND SALINE LOCKED. PUREWICK IN PLACE, DRAINING URINE. SAFETY MEASURES IN PLACE: CALL LIGHT WITHIN REACH, SIDE RAILS UP X 3, BED LOCKED IN LOWEST POSITION, HOB ELEVATED, BED ALARM ON. DROPLET/CONTACT PRECAUTIONS IN PLACE. WILL CONTINUE TO MONITOR.
[2022-07-12 08:00] VITALS: BP 140/66
[2022-07-12] MEDS: CEFEPIME 2 GM in IV D5W 100 ML IV SCH ×2 (08:12→20:07)
[2022-07-12] MEDS: PROSOURCE / PROSTAT (PYXIS) 30 ML UDC PO SCH ×3 (08:14→16:16)
[2022-07-12] MEDS: POLYETHYLENE GLYCOL 3350 17 GM POWD.PACK PO SCH (08:15)
[2022-07-12] MEDS: DEXAMETHASONE SOD PHOSPHATE 10 MG/ML VIAL IV SCH (08:16)
[2022-07-12] MEDS: DOCUSATE SODIUM LIQ 100 MG/10 ML UDC PO SCH ×2 (08:16→16:16)
[2022-07-12 08:18] LABS: C-REACTIVE PROTEIN 1.3 mg/dL (0.0-0.9)
[2022-07-12] MEDS: ENOXAPARIN SODIUM 40 MG/0.4 ML DISP.SYRIN SQ SCH (08:18)
[2022-07-12] MEDS: METOPROLOL TARTRATE 25 MG TABLET PO SCH ×2 (08:21→20:12)
[2022-07-12] MEDS: FLUTICASONE PROPIONATE 16 GM BOTTLE NS SCH ×2 (08:52→16:16)
[2022-07-12 12:00] VITALS: BP 131/65
[2022-07-12] MEDS: REMDESIVIR (CHARGED) 100 MG in IV NS 0.9% 230 ML IV SCH (13:14)
[2022-07-12 16:00] VITALS: BP 113/60
[2022-07-12] MEDS: INSULIN REGULAR, HUMAN 100 UNIT/ML 3 ML VIAL SQ PRN (17:16)
--- NOTE | 2022-07-12 18:45 | NUR ---
COMMUNITY ENGAGEMENT REPRESENTATIVE CLOSING NOTE PATIENT RESTING IN BED. A/OX1. PATIENT ON EXTERNAL LIGHT COIL WINDER READING ST, HR: 104. PATIENT IS ON 3L OF O2 VIA NC, NO S/S OF DISTRESS OR SOB NOTED, BREATHING EVEN AND NON LABORED. IV ACCESS ON LAC #22G INTACT, SALINE LOCKED. PUREWICK IN PLACE WITH 700 ML OUTPUT. MEDICATIONS GIVEN ORDERED, PT NEEDS MET THROUGHOUT SHIFT. SAFETY MEASURES IN PLACE: CALL LIGHT WITHIN REACH, SIDE RAILS UP X 3, BED LOCKED IN LOWEST POSITION, HOB ELEVATED, BED ALARM ON. DROPLET/CONTACT PRECAUTIONS MAINTAINED. ENDORSED TO ONCOMING RN FOR VIVIAN.
[2022-07-12 20:00] VITALS: BP 123/68
[2022-07-12] MEDS ORDERED: INSULIN GLARGINE, 100 UNIT/ML CARTRIDGE SQ SCH (22:00)
[2022-07-12] MEDS: MONTELUKAST SODIUM (10MG) 10 MG TABLET PO SCH (22:43)
[2022-07-12] MEDS: LISINOPRIL (10MG) 10 MG TABLET PO SCH (23:55)
[2022-07-13] VITALS: BP 114/65
[2022-07-13 04:00] VITALS: BP 125/71
--- NOTE | 2022-07-13 05:51 | NUR ---
END OF SHIFT REPORT Patient in bed, Alert Oriented x1 to self only. Oxygen sat high 90's in 2L NC. Sinus rhythm in the playground monitor HR 74. IV Left arm intact. On IV abx. Afebrile during the night. Bld gucose monitored, given insulin per sliding parameters. On Remdesivir day 4 today. Turned and repositioned q2h. Wound dressing done. Off load heels at all times. Plan continue abx. Wean down oxygen as tolerated. Will endorse to oncoming RN.
--- NOTE | 2022-07-13 07:10 | NUR ---
HAND TUFTER OPENING NOTES PATIENT RECEIVED IN BED, ASLEEP. ON 3L NC. ON TELE MONITOR. IV ACCESS ON LAC 22G INTACT AND PATENT RUNNING ANTIBIOTIC. SAFETY PRECAUTIONS IN PLACE, WITH BED IN LOWEST AND LOCKED POSITION, HEAD OF BED ELEVATED, BED RAILS UP X3, AND CALL LIGHT AND BEDSIDE TABLE WITHIN REACH. WILL CONTINUE TO MONITOR.
[2022-07-13 07:26] LABS: BASOPHILS # (AUTO) 0.1 K/uL (0.0-0.2); BASOPHILS % (AUTO) 0.8 % (0.0-2.0); EOSINOPHILS % (AUTO) 0.3 % (0.0-6.0); HEMATOCRIT 41 % (33-45); HEMOGLOBIN 13.2 g/dL (11.5-14.8); LYMPHOCYTES # (AUTO) 2.2 K/uL (0.8-4.8); LYMPHOCYTES % (AUTO) 18.7 % (20.0-44.0); MEAN CORPUSCULAR HGB CONC 32 g/dl (31.0-36.0); MEAN CORPUSCULAR VOLUME 97 fL (82-100); MONOCYTES # (AUTO) 0.8 K/uL (0.1-1.30); NEUTROPHILS # (AUTO) 8.7 K/uL (1.8-8.9); NEUTROPHILS % (AUTO) 73.2 % (43.0-81.0); PLATELET COUNT (AUTO) 216 K/uL (150-450); RED BLOOD CELL COUNT(AUTO) 4.22 MIL/uL (4.0-5.2); WHITE BLOOD COUNT (AUTO) 11.9 K/uL (4.3-11.0)
[2022-07-13 08:00] VITALS: BP 141/77
[2022-07-13] MEDS: GLUCERNA SHAKE 237 ML CAN PO SCH ×2 (08:00→17:07)
[2022-07-13] MEDS: CEFEPIME 2 GM in IV D5W 100 ML IV SCH (08:30)
[2022-07-13] MEDS: POLYETHYLENE GLYCOL 3350 17 GM POWD.PACK PO SCH (08:30)
[2022-07-13] MEDS: ENOXAPARIN SODIUM 40 MG/0.4 ML DISP.SYRIN SQ SCH (08:33)
[2022-07-13] MEDS: DEXAMETHASONE SOD PHOSPHATE 10 MG/ML VIAL IV SCH (08:34)
[2022-07-13] MEDS: DOCUSATE SODIUM LIQ 100 MG/10 ML UDC PO SCH ×2 (08:35→16:22)
[2022-07-13] MEDS: METOPROLOL TARTRATE 25 MG TABLET PO SCH ×2 (08:37→21:02)
[2022-07-13] MEDS: PROSOURCE / PROSTAT (PYXIS) 30 ML UDC PO SCH ×3 (08:38→16:22)
[2022-07-13] MEDS: BLOOD SUGAR DIAGNOSTIC 1 EACH STRIP VI SCH ×4 (09:18→22:29)
[2022-07-13] MEDS: *INSULIN REGULAR(HUMULIN R)HUM 100 UNIT/ML VIAL SQ PRN ×4 (09:19→22:38)
[2022-07-13] MEDS: FLUTICASONE PROPIONATE 16 GM BOTTLE NS SCH ×2 (09:21→16:22)
[2022-07-13 09:50] LABS: ALBUMIN 2.2 g/dL (3.4-5.0); BILIRUBIN,DIRECT 0.1 mg/dL (0.0-0.2); BILIRUBIN,TOTAL 0.4 mg/dL (0.2-1.0); CREATININE 0.8 mg/dL (0.6-1.3); POTASSIUM 3.6 mmol/L (3.5-5.1); TOTAL PROTEIN, SERUM 6.2 g/dL (6.4-8.2)
[2022-07-13] MEDS: INSULIN GLARGINE, 100 UNIT/ML CARTRIDGE SQ SCH ×2 (10:35→16:56)
--- NOTE | 2022-07-13 11:00 | NUR ---
PATIENT KEEPS REMOVING NC.
[2022-07-13 12:00] VITALS: BP 135/70
[2022-07-13] MEDS: REMDESIVIR (CHARGED) 100 MG in IV NS 0.9% 230 ML IV SCH (13:38)
[2022-07-13 16:00] VITALS: BP 127/67
--- NOTE | 2022-07-13 19:00 | NUR ---
PRINT BUYER CLOSING NOTES PATIENT IN BED, SLEEPING INTERMITTENTLY. ALERT AND ORIENTED TO SELF ONLY. ON 4L NC SATTING AT 96%. ON TELE MONITOR READING 130 SINUS TACHYCARDIA. IV ACCESS ON LAC 22G INTACT AND PATENT. PATIENT ON PUREWICK DRAINING CLEAR, YELLOW COLORED URINE. ALL DUE MEDS GIVEN. SAFETY PRECAUTIONS IN PLACE, WITH BED IN LOWEST AND LOCKED POSITION, HEAD OF BED ELEVATED, BED RAILS UP X3, AND CALL LIGHT AND BEDSIDE TABLE WITHIN REACH. WILL ENDORSE TO ONCOMING SHIFT FOR VIVIAN.
--- NOTE | 2022-07-13 19:58 | NUR ---
noc rn opening note received patient in bed. a/oxo. confused. no s/s of apparent distress on 3lpm of o2 via nc. denies pain. patient on purewick. l.ac #22g on saline lock, intact and patent. reading st with [address]-- bed in lowest, locked position, bed alarms in place, aspiration precaution in place. will continue with patient's plan of care.
[2022-07-13 20:00] VITALS: BP 112/61
[2022-07-13] MEDS: MONTELUKAST SODIUM (10MG) 10 MG TABLET PO SCH (22:19)
[2022-07-13] MEDS: LISINOPRIL (10MG) 10 MG TABLET PO SCH (22:19)
[2022-07-14] VITALS: BP 131/68
[2022-07-14 04:00] VITALS: BP 104/56
[2022-07-14 06:31] LABS: BASOPHILS # (AUTO) 0.1 K/uL (0.0-0.2); BASOPHILS % (AUTO) 0.4 % (0.0-2.0); HEMATOCRIT 44 % (33-45); HEMOGLOBIN 13.9 g/dL (11.5-14.8); LYMPHOCYTES # (AUTO) 2.4 K/uL (0.8-4.8); LYMPHOCYTES % (AUTO) 11.5 % (20.0-44.0); MEAN CORPUSCULAR HGB CONC 32 g/dl (31.0-36.0); MEAN CORPUSCULAR VOLUME 98 fL (82-100); NEUTROPHILS # (AUTO) 17.4 K/uL (1.8-8.9); NEUTROPHILS % (AUTO) 82.1 % (43.0-81.0); PLATELET COUNT (AUTO) 249 K/uL (150-450); RED BLOOD CELL COUNT(AUTO) 4.49 MIL/uL (4.0-5.2); WHITE BLOOD COUNT (AUTO) 21.2 K/uL (4.3-11.0)
[2022-07-14 06:41] LABS: ALANINE AMINOTRANSFERASE 32 U/L (12-78); ALBUMIN 1.9 g/dL (3.4-5.0); ALKALINE PHOSPHATASE 126 U/L (46-116); ASPARTATE AMINOTRANSFERASE 40 U/L (15-37); BILIRUBIN,TOTAL 0.6 mg/dL (0.2-1.0); CARBON DIOXIDE 23 mmol/L (21-32); CHLORIDE 116 mmol/L (98-107); CREATININE 0.6 mg/dL (0.6-1.3); GLUCOSE 225 mg/dL (74-106); POTASSIUM 4.7 mmol/L (3.5-5.1); SODIUM SERUM 145 mmol/L (136-145); TOTAL PROTEIN, SERUM 6.1 g/dL (6.4-8.2); UREA NITROGEN, BLOOD 48 mg/dL (7-18)
[2022-07-14] MEDS: BLOOD SUGAR DIAGNOSTIC 1 EACH STRIP VI SCH ×4 (07:26→22:57)
[2022-07-14] MEDS: INSULIN REGULAR, HUMAN 100 UNIT/ML 3 ML VIAL SQ PRN (07:27)
--- NOTE | 2022-07-14 07:31 | NUR ---
NOC RN CLOSING NOTE NEEDS ATTENDED. REPORT GIVEN TO AR FOR CONTINUITY OF CARE.
--- NOTE | 2022-07-14 07:41 | NUR ---
RING ROLLING MACHINE OPERATOR OPENING NOTES PATIENT RECEIVED IN BED ASLEEP. ON 3L NC BREATHING EVEN AND UNLABORED, WITH NO S/S OF RESPIRATORY DISTRESS OR SOB. ON TELE MONITOR. IV ACCESS ON LAC 22G INTACT AND PATENT. PATIENT ON PUREWICK DRAINING CLEAR, YELLOW COLORED URINE. SAFETY PRECAUTIONS IN PLACE, WITH BED IN LOWEST AND LOCKED POSITION, HEAD OF BED ELEVATED, BED RAILS UP X3, AND CALL LIGHT AND BEDSIDE TABLE WITHIN REACH. WILL CONTINUE TO MONITOR.
[2022-07-14 08:00] VITALS: BP 124/74
[2022-07-14] MEDS: POLYETHYLENE GLYCOL 3350 17 GM POWD.PACK PO SCH (08:52)
[2022-07-14] MEDS: GLUCERNA SHAKE 237 ML CAN PO SCH ×2 (08:52→17:52)
[2022-07-14] MEDS: DOCUSATE SODIUM LIQ 100 MG/10 ML UDC PO SCH ×2 (08:52→17:47)
[2022-07-14] MEDS: ENOXAPARIN SODIUM 40 MG/0.4 ML DISP.SYRIN SQ SCH (08:53)
[2022-07-14] MEDS: DEXAMETHASONE SOD PHOSPHATE 10 MG/ML VIAL IV SCH (08:53)
[2022-07-14] MEDS: METOPROLOL TARTRATE 25 MG TABLET PO SCH ×2 (08:54→21:51)
[2022-07-14] MEDS: INSULIN GLARGINE, 100 UNIT/ML CARTRIDGE SQ SCH ×2 (08:58→17:43)
[2022-07-14] MEDS: PROSOURCE / PROSTAT (PYXIS) 30 ML UDC PO SCH ×3 (09:07→17:47)
[2022-07-14] MEDS: FLUTICASONE PROPIONATE 16 GM BOTTLE NS SCH ×2 (09:20→17:52)
[2022-07-14 12:00] VITALS: BP 121/71
[2022-07-14] MEDS: *INSULIN REGULAR(HUMULIN R)HUM 100 UNIT/ML VIAL SQ PRN ×3 (15:36→22:56)
[2022-07-14 16:00] VITALS: BP 127/72
--- NOTE | 2022-07-14 19:00 | NUR ---
CHEESE PRODUCTION SUPERVISOR CLOSING NOTES PATIENT IN BED ASLEEP. ON 3L NC BREATHING EVEN AND UNLABORED, WITH NO S/S OF RESPIRATORY DISTRESS OR SOB. ON TELE MONITOR. IV ACCESS ON LAC 22G INTACT AND PATENT. PATIENT ON PUREWICK- DRAINING INTERMITTENTLY WITH CLEAR, DARK YELLOW COLORED URINE. SAFETY PRECAUTIONS IN PLACE, WITH BED IN LOWEST AND LOCKED POSITION, HEAD OF BED ELEVATED, BED RAILS UP X3, AND CALL LIGHT AND BEDSIDE TABLE WITHIN REACH. WILL ENDORSE TO ONCOMING SHIFT.
[2022-07-14 20:00] VITALS: BP 129/70
--- NOTE | 2022-07-14 20:33 | NUR ---
DRUG ABUSE SOCIAL WORKER OPENING NOTES: RECEIVED PATIENT AWAKE IN BED, BED IN LOW POSITION CALL LIGHTS WITHIN REACH, NO COMPLAIN OF PAIN AND DISCOMFORT AT THIS TIME, ON O2 INHALATION AT 3LPM SATURATING WELL, PATIENT IS A/O XO ON PUREED DIET, ON TELE MONITOR- ST-116, HOB TO REMAIN AT 45 DEGREE, ASPIRATION PRECAUTION, PATIENT IS COVID POSITIVE, PATIENT KEPT CLEAN AND DRY ALL NEEDS MET WILL CONTINUE TO MONITOR.
[2022-07-14] MEDS: MONTELUKAST SODIUM (10MG) 10 MG TABLET PO SCH (21:52)
[2022-07-14] MEDS ORDERED: PAMIDRONATE 90 MG in IV NS 0.9% 500 ML IV ONE (23:00)
[2022-07-14] MEDS: LISINOPRIL (10MG) 10 MG TABLET PO SCH (23:07)
[2022-07-14] MEDS ORDERED: PAMIDRONATE 30 MG/VIAL VIAL IV ONE (23:14)
[2022-07-15] VITALS: BP 115/61
[2022-07-15 04:00] VITALS: BP 130/62
[2022-07-15 06:07] LABS: BASOPHILS # (AUTO) 0.1 K/uL (0.0-0.2); BASOPHILS % (AUTO) 0.5 % (0.0-2.0); EOSINOPHILS % (AUTO) 2.7 % (0.0-6.0); HEMATOCRIT 39 % (33-45); HEMOGLOBIN 12.5 g/dL (11.5-14.8); LYMPHOCYTES # (AUTO) 2.3 K/uL (0.8-4.8); LYMPHOCYTES % (AUTO) 14.5 % (20.0-44.0); MEAN CORPUSCULAR HGB CONC 32 g/dl (31.0-36.0); MEAN CORPUSCULAR VOLUME 97 fL (82-100); MONOCYTES # (AUTO) 0.8 K/uL (0.1-1.30); NEUTROPHILS # (AUTO) 12.4 K/uL (1.8-8.9); NEUTROPHILS % (AUTO) 77.3 % (43.0-81.0); PLATELET COUNT (AUTO) 238 K/uL (150-450); RED BLOOD CELL COUNT(AUTO) 4.03 MIL/uL (4.0-5.2)
--- NOTE | 2022-07-15 06:27 | NUR ---
EVENING ANCHOR CLOSING NOTES: PATIENT SLEEP IN BED COMFORTABLY RESPONSIVE TO TACTILE AND VERBAL STIMULI, OPENS EYES, HOB AT 45 DEGREE ALL THE TIME, BED IN LOW POSITION, CALL LIGHTS WITHIN REACH, NO COMPLAIN OF PAIN AND DISCOMFORT AT THIS TIME, ON O2 INHALATION AT 3LPM SATURATING WELL, PATIENT ON TELE MONITOR- ST-104, NO SYMPTOMS WAS OBSERVED,ON IV LINE AT LAC#22SL. PATIENT KEPT CLEAN AND DRY ALL NEEDS MET ENDORSE TO INCOMING SHIFT.
[2022-07-15 06:55] LABS: ALANINE AMINOTRANSFERASE 32 U/L (12-78); ALKALINE PHOSPHATASE 125 U/L (46-116); ASPARTATE AMINOTRANSFERASE 32 U/L (15-37); BILIRUBIN,TOTAL 0.4 mg/dL (0.2-1.0); CALCIUM, SERUM 11.7 mg/dL (8.5-10.1); CARBON DIOXIDE 28 mmol/L (21-32); CHLORIDE 120 mmol/L (98-107); CREATININE 0.5 mg/dL (0.6-1.3); GLUCOSE 164 mg/dL (74-106); POTASSIUM 4.4 mmol/L (3.5-5.1); SODIUM SERUM 151 mmol/L (136-145); TOTAL PROTEIN, SERUM 5.6 g/dL (6.4-8.2); UREA NITROGEN, BLOOD 46 mg/dL (7-18)
[2022-07-15] MEDS: BLOOD SUGAR DIAGNOSTIC 1 EACH STRIP VI SCH ×4 (07:31→22:19)
--- NOTE | 2022-07-15 07:40 | NUR ---
WINE CELLAR STOCK CLERK OPENING NOTE RECEIVED PT IN BED. HEAD OF BED ELEVATED. PT ALERT AND ORIENTED X1. ON TELE MONITOR SINUS TACHYCARDIA AT 103 AT THIS TIME.NO SIGNS OF PAIN OR DISCOMFORT NOTED AT THIS TIME. PT ON 3L NASAL CANNULA TOLERATING ABOVE 92%.PT HAS LEFT AC 22 GUAGE. IV INTACT, PATENT AND FLUSHING WELL. ALL SAFETY EMASURES IN PLACE. BED LOCKED AT LOWEST POSITION. SIDE RAILS UP X2. BED ALAMR ON.
[2022-07-15 08:00] VITALS: BP 114/65
[2022-07-15] MEDS: POLYETHYLENE GLYCOL 3350 17 GM POWD.PACK PO SCH ×2 (09:00→09:06)
[2022-07-15] MEDS: PROSOURCE / PROSTAT (PYXIS) 30 ML UDC PO SCH ×3 (09:06→18:23)
[2022-07-15] MEDS: DEXAMETHASONE SOD PHOSPHATE 10 MG/ML VIAL IV SCH (09:06)
[2022-07-15] MEDS: DOCUSATE SODIUM LIQ 100 MG/10 ML UDC PO SCH ×2 (09:06→18:14)
[2022-07-15] MEDS: METOPROLOL TARTRATE 25 MG TABLET PO SCH ×2 (09:07→21:50)
[2022-07-15] MEDS: ENOXAPARIN SODIUM 40 MG/0.4 ML DISP.SYRIN SQ SCH (09:11)
[2022-07-15] MEDS: GLUCERNA SHAKE 237 ML CAN PO SCH ×2 (09:14→17:00)
[2022-07-15] MEDS: FLUTICASONE PROPIONATE 16 GM BOTTLE NS SCH ×2 (10:43→18:24)
[2022-07-15] MEDS: INSULIN GLARGINE, 100 UNIT/ML CARTRIDGE SQ SCH ×2 (10:54→18:19)
[2022-07-15 12:00] VITALS: BP 129/51
[2022-07-15] MEDS ORDERED: DEXA4TAB PO (12:45)
[2022-07-15] MEDS ORDERED: METO25TA20 PO (12:45)
--- NOTE | 2022-07-15 12:53 | NUR ---
rn note gave report to CHITO at [facility]
[2022-07-15] MEDS ORDERED: IV D5W 1,000 ML IV ONE (13:00)
[2022-07-15] MEDS: INSULIN REGULAR, HUMAN 100 UNIT/ML 3 ML VIAL SQ PRN (13:27)
[2022-07-15 16:00] VITALS: BP 150/82
--- NOTE | 2022-07-15 18:04 | NUR ---
RN NOTE NOTIFIED THAT PT ON 4L NASAL CANNULA SATURATING AT 89-92%, SINUS TACHY 118, AND IF DISCHARGE CAN BE HELD ORDERED STAT CHEST XRAY, ORDERS NOTED AND CARRIED OUT
--- NOTE | 2022-07-15 19:22 | NUR ---
WIRE SPOOLER CLOSING NOTE PT IN BED. HEAD OF BED ELEVATED AT ALL TIMES. PT ALERT AND ORIENTED X1. ON TELE MONITOR SINUS TACHYCARDIA AT 122 AT THIS TIME.NO SIGNS OF PAIN OR DISCOMFORT NOTED AT THIS TIME. PT ON 3L NASAL CANNULA TOLERATING ABOVE 92%.PT HAS LEFT AC 22 GUAGE. IV INTACT, PATENT AND FLUSHING WELL. ALL SAFETY EMASURES IN PLACE. BED LOCKED AT LOWEST POSITION. SIDE RAILS UP X2. BED ALAMR ON.ENDORSED TO BENDING FRAME OPERATOR RN FOR CONTUITY OF CARE
--- NOTE | 2022-07-15 19:25 | NUR ---
RN NOTE sent chest xray results to per order
--- NOTE | 2022-07-15 19:30 | NUR ---
OFFICE CLEANER OPENING NOTE RECEIVED PATIENT IN BED; AWAKE, A/O X 0. ON O2 INHALATION @ 4 LPM VIA NASAL CANNULA; TOLERATING WELL SATURATING @ 94% WITH NO S/S OF RESPIRATORY DISTRESS. ON TELE MONITORING SINUS TACHYCARDIA HR-115 BPM. WITH IV ACCESS ON LAC 22g; PATENT AND INTACT RUNNING WITH D5W REGULATED @ 60 ML/HR; FLUSHES WELL. SAFETY MEASURES IMPLEMENTED: HOB ELEVATED TO 45 DEGREES @ ALL TIMES, CALL LIGHT AND TABLE WITHIN REACH, SIDE RAILS UP X 3, BED IN LOWEST LOCKED POSITION. WILL CONTINUE TO MONITOR THROUGHOUT SHIFT.
[2022-07-15 20:00] VITALS: BP 125/60
[2022-07-15] MEDS: LISINOPRIL (10MG) 10 MG TABLET PO SCH (21:50)
[2022-07-15] MEDS: MONTELUKAST SODIUM (10MG) 10 MG TABLET PO SCH (21:50)
[2022-07-15] MEDS: *INSULIN REGULAR(HUMULIN R)HUM 100 UNIT/ML VIAL SQ PRN (22:21)
--- NOTE | 2022-07-15 22:21 | NUR ---
RN NOTE BLOOD SUGAR CHECKED - 431 MG/DL. JIMBO BUCIO NP MADE AWARE. ADMINISTERED 10 UNITS OF REGULAR INSULIN SQ ORDERED. WILL CONTINUE TO MONITOR PATIENT.
[2022-07-16] VITALS: BP 114/72
[2022-07-16 04:00] VITALS: BP 137/74
--- NOTE | 2022-07-16 06:35 | NUR ---
CUSTOM WOOD STAIR BUILDER CLOSING NOTE PATIENT IN BED; AWAKE, A/O X 0. STILL ON O2 INHALATION @ 3 LPM VIA NASAL CANNULA; TOLERATING WELL SATURATING @ 97% WITH NO S/S OF RESPIRATORY DISTRESS. ON TELE MONITORING SINUS TACHYCARDIA HR-114 BPM. WITH IV ACCESS ON LAC 22g; PATENT AND INTACT RUNNING WITH D5W REGULATED @ 60 ML/HR; FLUSHES WELL. SAFETY MEASURES IN PLACE: HOB ELEVATED TO 45 DEGREES @ ALL TIMES, CALL LIGHT AND TABLE WITHIN REACH, SIDE RAILS UP X 3, BED IN LOWEST LOCKED POSITION. ENDORSED TO MORNING SHIFT FOR CONTINUITY OF CARE.
--- NOTE | 2022-07-16 07:30 | NUR ---
RN OPENING NOTE RECEIVED PATIENT IN BED ASLEEP. EASILY AROUSED. NO SIGNS OF ACUTE DISTRESS NOTED. ON O2 INHALATION @3LPM VIA N/C, NO SOB NOTED, BREATHING EVEN AND UNLABORED. ON CARDIAC MONITORING SHOWING SINUS TACHYCARDIA, HR @107. NOTED WITH IV ACCESS ON LEFT ANTECUBITAL AREA #22G, INTACT AND PATENT, SALINE LOCKED. HOB ELEVATED. SAFETY MEASURE IN PLACE.ED IN LOW AND LOCKED POSITION, SIDE RAILS UP X2, CALL LIGHT PLACED WITHIN EASY REACH. WILL CONTINUE TO MONITOR PATIENT.
[2022-07-16] MEDS: BLOOD SUGAR DIAGNOSTIC 1 EACH STRIP VI SCH ×3 (07:56→16:40)
[2022-07-16] MEDS: INSULIN REGULAR, HUMAN 100 UNIT/ML 3 ML VIAL SQ PRN ×3 (07:59→16:44)
[2022-07-16 08:00] VITALS: BP 127/64
[2022-07-16] MEDS: DEXAMETHASONE SOD PHOSPHATE 10 MG/ML VIAL IV SCH (08:54)
[2022-07-16] MEDS: DOCUSATE SODIUM LIQ 100 MG/10 ML UDC PO SCH ×2 (08:54→16:39)
[2022-07-16] MEDS: GLUCERNA SHAKE 237 ML CAN PO SCH (08:54)
[2022-07-16] MEDS: POLYETHYLENE GLYCOL 3350 17 GM POWD.PACK PO SCH (08:54)
[2022-07-16] MEDS: METOPROLOL TARTRATE 25 MG TABLET PO SCH (08:55)
[2022-07-16] MEDS: ENOXAPARIN SODIUM 40 MG/0.4 ML DISP.SYRIN SQ SCH (08:58)
[2022-07-16] MEDS: INSULIN GLARGINE, 100 UNIT/ML CARTRIDGE SQ SCH ×2 (08:58→16:44)
[2022-07-16] MEDS: FLUTICASONE PROPIONATE 16 GM BOTTLE NS SCH ×2 (09:16→16:39)
[2022-07-16] MEDS: PROSOURCE / PROSTAT (PYXIS) 30 ML UDC PO SCH ×3 (09:16→16:40)
[2022-07-16 10:02] LABS: BASOPHILS % (AUTO) 0.4 % (0.0-2.0); EOSINOPHILS % (AUTO) 0.1 % (0.0-6.0); HEMATOCRIT 45 % (33-45); HEMOGLOBIN 14.2 g/dL (11.5-14.8); LYMPHOCYTES # (AUTO) 1.3 K/uL (0.8-4.8); LYMPHOCYTES % (AUTO) 11.5 % (20.0-44.0); MEAN CORPUSCULAR HGB CONC 32 g/dl (31.0-36.0); MEAN CORPUSCULAR VOLUME 98 fL (82-100); MONOCYTES # (AUTO) 0.3 K/uL (0.1-1.30); MONOCYTES % (AUTO) 2.8 % (2.0-12.0); NEUTROPHILS # (AUTO) 9.3 K/uL (1.8-8.9); NEUTROPHILS % (AUTO) 85.2 % (43.0-81.0); PLATELET COUNT (AUTO) 264 K/uL (150-450); RED BLOOD CELL COUNT(AUTO) 4.53 MIL/uL (4.0-5.2)
[2022-07-16 10:08] LABS: CALCIUM, SERUM 11.5 mg/dL (8.5-10.1); CREATININE 0.8 mg/dL (0.6-1.3); POTASSIUM 3.7 mmol/L (3.5-5.1)
[2022-07-16 10:28] LABS: ALBUMIN 2.1 g/dL (3.4-5.0); BILIRUBIN,TOTAL 0.5 mg/dL (0.2-1.0); TOTAL PROTEIN, SERUM 6.1 g/dL (6.4-8.2)
[2022-07-16 12:00] VITALS: BP 108/61
[2022-07-16 16:00] VITALS: BP 137/70
--- NOTE | 2022-07-16 18:09 | NUR ---
TEST RIDER NOTE PATIENT DISCHARGED TO [facility] IN STABLE CONDITION. PATIENT REMAINS AWAKE, CONFUSED, VERBALLY RESPONSIVE TO SIMPLE QUESTIONS. HANDOFF REPORT GIVEN TO JASON DALE FROM [place]. IV ACCESS REMOVED, NO BLEEDING NOTED, PRESSURE DRESSING APPLIED TO SITE. PATIENT DOESN'T HAVE BELONGINGS. TREATMENT DONE TO WOUND. EXIT CARE FOLDER GIVEN TO [place] [facility]. PATIENT LEFT UNIT @1805 VIA GURNEY. CN AWARE OF DISCHARGE.
== END 2022-07-16 18:05 | DRG 871 ==
LOC: ER 21:55 → TELE 07-07 03:11 → TELE1 07-08 20:57
PROVIDERS: ADMIT Nurse Practitioner Acute Care; ATTEND Internal Medicine
PROC: XW033E5 Introduction of Remdesivir Anti-infective into Peripheral Vein, Percutaneous Approach, New Technology Group 5 (ICD-10-PCS; principal; 2022-07-09)
DX: A41.89 Other specified sepsis (principal); E43 Unspecified severe protein-calorie malnutrition; J69.0 Pneumonitis due to inhalation of food and vomit; J96.01 Acute respiratory failure with hypoxia; N17.0 Acute kidney failure with tubular necrosis; U07.1 COVID-19; G92.8 Other toxic encephalopathy; J12.82 Pneumonia due to coronavirus disease 2019; J90 Pleural effusion, not elsewhere classified; E44.0 Moderate protein-calorie malnutrition; E87.0 Hyperosmolality and hypernatremia; J98.11 Atelectasis; I10 Essential (primary) hypertension; E11.65 Type 2 diabetes mellitus with hyperglycemia; F31.9 Bipolar disorder, unspecified; Z88.8 Allergy status to other drugs, medicaments and biological substances; E88.09 Other disorders of plasma-protein metabolism, not elsewhere classified; D16.4 Benign neoplasm of bones of skull and face; Z86.59 Personal history of other mental and behavioral disorders; F25.9 Schizoaffective disorder, unspecified; G93.89 Other specified disorders of brain; Z98.890 Other specified postprocedural states; L89.619 Pressure ulcer of right heel, unspecified stage; L89.326 Pressure-induced deep tissue damage of left buttock; L89.316 Pressure-induced deep tissue damage of right buttock; L89.152 Pressure ulcer of sacral region, stage 2; G40.909 Epilepsy, unspecified, not intractable, without status epilepticus; N28.1 Cyst of kidney, acquired; E86.0 Dehydration; E83.52 Hypercalcemia; Z78.9 Other specified health status; Z86.011 Personal history of benign neoplasm of the brain; T38.0X5A Adverse effect of glucocorticoids and synthetic analogues, initial encounter; Y92.009 Unspecified place in unspecified non-institutional (private) residence as the place of occurrence of the external cause; D32.0 Benign neoplasm of cerebral meninges
CPT/HCPCS: 36415; 36600; 70450-TC; 71045-TC; 80048-TC; 80053-TC; 80061-TC; 80076-TC; 80164-TC; 80202-TC; 81001; 82728-TC; 82962-TC; 83605-TC; 83735-TC; 83880; 84100-TC; 84443-TC; 84484-TC; 85025-TC; 85378-TC; 85610-TC; 85730-TC; 86140-TC; 86704; 86803; 87040-TC; 87081-TC; 87340; 87806; 92526; 92611-TC; A4216; A4223; C9803; G0378; J0692; J1100; J1650; J1815; J2048; J2430; J3370; J3490; J7030; J7040; J7050; J7060; J7070; Q9967; U0003

== ENCOUNTER 2022-08-27 14:49 | Inpatient (IN) | payer MEDICARE, OTHER ==
[~2022-08-27] VITALS: Ht 160 cm; Wt 67.2 kg
[~2022-08-27 14:49] MED LIST: ACET-868 PO; BISA10SU11 RC; DEXA4TAB PO; DIVA-76 PO; DIVA-78 PO; DOCU-141 PO; FLUT16SP; HYDR-3980 PO; INSU100V28 SQ; INSU100V7 SQ; LISI10TA29 PO; MAGN400O6 PO; METF-440 PO; METO25TA20 PO; MONT10TA22 PO; NA P133E RC; POLY17PO4 PO; RISP0.2515 PO
[2022-08-27] MEDS ORDERED: VANCOMYCIN 1 GM in IV D5W 250 ML IV ONE (15:30)
[2022-08-27 15:54] LABS: BASOPHILS # (AUTO) 0.2 K/uL (0.0-0.2); BASOPHILS % (AUTO) 1.4 % (0.0-2.0); EOSINOPHILS % (AUTO) 0.7 % (0.0-6.0); HEMATOCRIT 33 % (33-45); HEMOGLOBIN 10.9 g/dL (11.5-14.8); LYMPHOCYTES # (AUTO) 2.7 K/uL (0.8-4.8); LYMPHOCYTES % (AUTO) 23.5 % (20.0-44.0); MEAN CORPUSCULAR HGB CONC 33 g/dl (31.0-36.0); MEAN CORPUSCULAR VOLUME 92 fL (82-100); MONOCYTES % (AUTO) 8.8 % (2.0-12.0); NEUTROPHILS # (AUTO) 7.6 K/uL (1.8-8.9); NEUTROPHILS % (AUTO) 65.6 % (43.0-81.0); PLATELET COUNT (AUTO) 407 K/uL (150-450); RED BLOOD CELL COUNT(AUTO) 3.56 MIL/uL (4.0-5.2); WHITE BLOOD COUNT (AUTO) 11.5 K/uL (4.3-11.0)
[2022-08-27 16:09] LABS: ALBUMIN 2.3 g/dL (3.4-5.0); BILIRUBIN,DIRECT 0.1 mg/dL (0.0-0.2); BILIRUBIN,TOTAL 0.1 mg/dL (0.2-1.0); CREATININE 0.6 mg/dL (0.6-1.3); POTASSIUM 5.3 mmol/L (3.5-5.1); TOTAL PROTEIN, SERUM 6.3 g/dL (6.4-8.2)
[2022-08-27] MEDS ORDERED: AMIN887L7 PO (16:12)
[2022-08-27] MEDS ORDERED: NUT.237L30 PO (16:12)
[2022-08-27] MEDS ORDERED: MULT-447 PO (16:12)
[2022-08-27] MEDS ORDERED: ASCO-495 PO (16:12)
[2022-08-27] MEDS ORDERED: METO25TA20 PO (16:12)
[2022-08-27] MEDS ORDERED: FURO-145 PO (16:12)
[2022-08-27] MEDS ORDERED: PALI117D IM (16:12)
[2022-08-27] MEDS ORDERED: FLUT12AE5 IH (16:12)
[2022-08-27] MEDS ORDERED: CHOL100043 PO (16:12)
[2022-08-27] MEDS ORDERED: PETR113O TP (16:12)
[2022-08-27] MEDS ORDERED: FLUT12AE5 INH (16:12)
[2022-08-27] MEDS ORDERED: IPRA3AMP23 IH (16:12)
[2022-08-27] MEDS ORDERED: IV NS 0.9% 1,000 ML IV ONE (18:00)
[2022-08-27] MEDS ORDERED: ACETAMINOPHEN 325 MG TABLET PO PRN (18:00)
[2022-08-27] MEDS ORDERED: MAGNESIUM HYDROXIDE 30 ML UDC PO PRN (18:00)
[2022-08-27] MEDS ORDERED: IPRATROPIUM NEB FS 0.5 MG/2.5 ML AMPUL.NEB NEB PRN (18:00)
[2022-08-27] MEDS ORDERED: HYDROCODONE/APAP 5/325MG TABLET PO PRN (18:00)
[2022-08-27] MEDS ORDERED: ALBUTEROL FS 2.5 MG/3 ML VIAL.NEB NEB PRN (18:00)
[2022-08-27] MEDS ORDERED: Z GUARD REMEDY 4 OZ OINT TP PRN (18:00)
[2022-08-27] MEDS ORDERED: ONDANSETRON HCL/PF 4 MG/2 ML VIAL IVP PRN (18:00)
[2022-08-27] MEDS ORDERED: DEXTROSE 50%-WATER 50 ML DISP.SYRIN IV PRN (18:00)
[2022-08-27 20:00] VITALS: BP 111/55
[2022-08-27] MEDS: BLOOD SUGAR DIAGNOSTIC 1 EACH STRIP IN SCH (21:54)
[2022-08-27] MEDS: INSULIN REGULAR, HUMAN 100 UNIT/ML 3 ML VIAL SQ PRN (22:13)
[2022-08-27] MEDS: PIPERACILLIN /TAZOBACTAM 3.375 G in IV D5W 50 ML IV SCH (23:18)
[2022-08-28] VITALS: BP 92/53
[2022-08-28] MEDS: VANCOMYCIN 1 GM in IV D5W 250ml IV SCH ×2 (03:18→16:45)
[2022-08-28] MEDS: PIPERACILLIN /TAZOBACTAM 3.375 G in IV D5W 50 ML IV SCH ×4 (04:59→23:35)
[2022-08-28] MEDS: BLOOD SUGAR DIAGNOSTIC 1 EACH STRIP IN SCH ×4 (06:00→21:52)
[2022-08-28] MEDS: INSULIN REGULAR, HUMAN 100 UNIT/ML 3 ML VIAL SQ PRN ×4 (06:04→21:54)
[2022-08-28 06:12] LABS: BASOPHILS % (AUTO) 0.6 % (0.0-2.0); EOSINOPHILS % (AUTO) 0.4 % (0.0-6.0); HEMATOCRIT 34 % (33-45); HEMOGLOBIN 10.9 g/dL (11.5-14.8); LYMPHOCYTES # (AUTO) 0.7 K/uL (0.8-4.8); LYMPHOCYTES % (AUTO) 13.6 % (20.0-44.0); MEAN CORPUSCULAR HGB CONC 33 g/dl (31.0-36.0); MEAN CORPUSCULAR VOLUME 93 fL (82-100); MONOCYTES # (AUTO) 0.3 K/uL (0.1-1.30); MONOCYTES % (AUTO) 4.9 % (2.0-12.0); NEUTROPHILS # (AUTO) 4.4 K/uL (1.8-8.9); NEUTROPHILS % (AUTO) 80.5 % (43.0-81.0); PLATELET COUNT (AUTO) 316 K/uL (150-450); WHITE BLOOD COUNT (AUTO) 5.4 K/uL (4.3-11.0)
[2022-08-28 06:37] LABS: CALCIUM, SERUM 9.6 mg/dL (8.5-10.1); CREATININE 0.6 mg/dL (0.6-1.3); MAGNESIUM 1.3 mg/dL (1.8-2.4); POTASSIUM 4.6 mmol/L (3.5-5.1)
[2022-08-28 08:00] VITALS: BP_SYST 95; BP_SYST 96; BP_DIAS 55
[2022-08-28] MEDS: PANTOPRAZOLE 40 MG TABLET.DR PO SCH (08:29)
[2022-08-28] MEDS: Magnesium 1GM/D5W 100ML PREMIX 100 ML IV SCH ×5 (10:00→14:53)
[2022-08-28] MEDS ORDERED: LORAZEPAM INJ 2 MG/ML VIAL IV ONE (11:00)
[2022-08-28] MEDS ORDERED: IV NS 0.9% 500 ML BAG IV ONE (11:30)
[2022-08-28 16:00] VITALS: BP 98/56
[2022-08-28 20:00] VITALS: BP 108/50
[2022-08-29] VITALS: BP_SYST 11; BP_SYST 117; BP_DIAS 73
[2022-08-29 04:00] VITALS: BP 103/64
[2022-08-29 04:37] LABS: BASOPHILS # (AUTO) 0.1 K/uL (0.0-0.2); EOSINOPHILS % (AUTO) 1.1 % (0.0-6.0); HEMATOCRIT 34 % (33-45); HEMOGLOBIN 11.4 g/dL (11.5-14.8); LYMPHOCYTES # (AUTO) 1.4 K/uL (0.8-4.8); MEAN CORPUSCULAR HGB CONC 33 g/dl (31.0-36.0); MEAN CORPUSCULAR VOLUME 92 fL (82-100); MONOCYTES # (AUTO) 0.6 K/uL (0.1-1.30); MONOCYTES % (AUTO) 11.5 % (2.0-12.0); NEUTROPHILS # (AUTO) 2.9 K/uL (1.8-8.9); NEUTROPHILS % (AUTO) 58.4 % (43.0-81.0); PLATELET COUNT (AUTO) 324 K/uL (150-450); RED BLOOD CELL COUNT(AUTO) 3.73 MIL/uL (4.0-5.2)
[2022-08-29 04:43] LABS: CALCIUM, SERUM 9.9 mg/dL (8.5-10.1); CARBON DIOXIDE 25 mmol/L (21-32); CHLORIDE 99 mmol/L (98-107); CREATININE 0.5 mg/dL (0.6-1.3); GLUCOSE 294 mg/dL (74-106); MAGNESIUM 1.6 mg/dL (1.8-2.4); PHOSPHORUS 2.2 mg/dL (2.5-4.9); POTASSIUM 4.5 mmol/L (3.5-5.1); SODIUM SERUM 129 mmol/L (136-145); UREA NITROGEN, BLOOD 8 mg/dL (7-18)
[2022-08-29] MEDS: VANCOMYCIN 1 GM in IV D5W 250ml IV SCH ×2 (04:51→16:26)
[2022-08-29] MEDS: PIPERACILLIN /TAZOBACTAM 3.375 G in IV D5W 50 ML IV SCH ×4 (06:04→23:24)
[2022-08-29] MEDS: INSULIN REGULAR, HUMAN 100 UNIT/ML 3 ML VIAL SQ PRN ×4 (06:38→22:07)
[2022-08-29] MEDS: BLOOD SUGAR DIAGNOSTIC 1 EACH STRIP IN SCH ×4 (06:39→22:06)
[2022-08-29 07:00] VITALS: BP 119/75
[2022-08-29] MEDS ORDERED: K PHOS NEUTRAL 250 MG TABLET PO ONE (08:00)
[2022-08-29] MEDS: PANTOPRAZOLE 40 MG TABLET.DR PO SCH (08:27)
[2022-08-29] MEDS ORDERED: MAGNESIUM OXIDE 400 MG TABLET PO ONE (09:00)
[2022-08-29 12:00] VITALS: BP 101/50
[2022-08-29] MEDS ORDERED: LIDOCAINE MPF 1%-EPI 1:200,000 30 ML VIAL IJ ONE (14:30)
[2022-08-29] MEDS ORDERED: LIDOCAINE 1%-EPI 1:200,000 SDV 10 ML VIAL IJ ONE (14:30)
[2022-08-29] MEDS ORDERED: LIDOCAINE HCL/PF 1% 30 ML SDV IJ ONE (14:30)
[2022-08-29 16:00] VITALS: BP 96/51
[2022-08-29 20:00] VITALS: BP 94/50
[2022-08-30] VITALS: BP 101/51
[2022-08-30] MEDS: VANCOMYCIN 1 GM in IV D5W 250ml IV SCH ×2 (03:27→17:49)
[2022-08-30 04:00] VITALS: BP 116/57
[2022-08-30] MEDS: PIPERACILLIN /TAZOBACTAM 3.375 G in IV D5W 50 ML IV SCH ×4 (05:09→23:29)
[2022-08-30 06:29] LABS: BASOPHILS # (AUTO) 0.1 K/uL (0.0-0.2); BASOPHILS % (AUTO) 1.1 % (0.0-2.0); EOSINOPHILS % (AUTO) 0.5 % (0.0-6.0); HEMATOCRIT 30 % (33-45); HEMOGLOBIN 10.5 g/dL (11.5-14.8); LYMPHOCYTES # (AUTO) 1.9 K/uL (0.8-4.8); LYMPHOCYTES % (AUTO) 42.3 % (20.0-44.0); MEAN CORPUSCULAR HGB CONC 35 g/dl (31.0-36.0); MEAN CORPUSCULAR VOLUME 90 fL (82-100); MONOCYTES # (AUTO) 0.5 K/uL (0.1-1.30); MONOCYTES % (AUTO) 11.8 % (2.0-12.0); NEUTROPHILS % (AUTO) 44.3 % (43.0-81.0); PLATELET COUNT (AUTO) 261 K/uL (150-450); RED BLOOD CELL COUNT(AUTO) 3.31 MIL/uL (4.0-5.2); WHITE BLOOD COUNT (AUTO) 4.5 K/uL (4.3-11.0)
[2022-08-30] MEDS: BLOOD SUGAR DIAGNOSTIC 1 EACH STRIP IN SCH ×4 (06:31→22:26)
[2022-08-30] MEDS: INSULIN REGULAR, HUMAN 100 UNIT/ML 3 ML VIAL SQ PRN ×5 (06:33→22:28)
[2022-08-30 06:53] LABS: CALCIUM, SERUM 9.6 mg/dL (8.5-10.1); CARBON DIOXIDE 25 mmol/L (21-32); CHLORIDE 99 mmol/L (98-107); CREATININE 0.4 mg/dL (0.6-1.3); GLUCOSE 184 mg/dL (74-106); MAGNESIUM 1.3 mg/dL (1.8-2.4); PHOSPHORUS 2.1 mg/dL (2.5-4.9); POTASSIUM 4.1 mmol/L (3.5-5.1); SODIUM SERUM 131 mmol/L (136-145); UREA NITROGEN, BLOOD 8 mg/dL (7-18)
[2022-08-30 07:00] VITALS: BP 102/48
[2022-08-30] MEDS: PANTOPRAZOLE 40 MG TABLET.DR PO SCH (08:01)
[2022-08-30] MEDS ORDERED: MAGNESIUM OXIDE 400 MG TABLET PO ONE (11:00)
[2022-08-30 12:00] VITALS: BP 120/61
[2022-08-30 16:00] VITALS: BP 100/54
[2022-08-30 20:00] VITALS: BP 89/51
[2022-08-30] MEDS: HEPARIN SODIUM, PORCINE 5000 UNITS/1 ML VIAL SQ SCH (21:49)
[2022-08-31] VITALS: BP 98/52
[2022-08-31] MEDS: VANCOMYCIN 1 GM in IV D5W 250ml IV SCH ×2 (03:22→15:15)
[2022-08-31 04:00] VITALS: BP 91/51
[2022-08-31] MEDS: PIPERACILLIN /TAZOBACTAM 3.375 G in IV D5W 50 ML IV SCH ×2 (05:28→11:21)
[2022-08-31] MEDS: INSULIN REGULAR, HUMAN 100 UNIT/ML 3 ML VIAL SQ PRN ×2 (06:03→11:41)
[2022-08-31] MEDS: BLOOD SUGAR DIAGNOSTIC 1 EACH STRIP IN SCH ×2 (06:04→11:41)
[2022-08-31 06:16] LABS: BASOPHILS % (AUTO) 0.7 % (0.0-2.0); EOSINOPHILS % (AUTO) 0.8 % (0.0-6.0); HEMATOCRIT 34 % (33-45); HEMOGLOBIN 11.3 g/dL (11.5-14.8); LYMPHOCYTES # (AUTO) 2.1 K/uL (0.8-4.8); LYMPHOCYTES % (AUTO) 34.6 % (20.0-44.0); MEAN CORPUSCULAR HGB CONC 33 g/dl (31.0-36.0); MEAN CORPUSCULAR VOLUME 94 fL (82-100); MONOCYTES # (AUTO) 0.7 K/uL (0.1-1.30); MONOCYTES % (AUTO) 12.2 % (2.0-12.0); NEUTROPHILS # (AUTO) 3.1 K/uL (1.8-8.9); NEUTROPHILS % (AUTO) 51.7 % (43.0-81.0); PLATELET COUNT (AUTO) 300 K/uL (150-450); RED BLOOD CELL COUNT(AUTO) 3.65 MIL/uL (4.0-5.2)
[2022-08-31 06:37] LABS: CALCIUM, SERUM 9.5 mg/dL (8.5-10.1); CARBON DIOXIDE 29 mmol/L (21-32); CHLORIDE 97 mmol/L (98-107); CREATININE 0.5 mg/dL (0.6-1.3); GLUCOSE 251 mg/dL (74-106); MAGNESIUM 1.3 mg/dL (1.8-2.4); PHOSPHORUS 2.3 mg/dL (2.5-4.9); POTASSIUM 4.3 mmol/L (3.5-5.1); SODIUM SERUM 131 mmol/L (136-145); UREA NITROGEN, BLOOD 10 mg/dL (7-18)
[2022-08-31 08:00] VITALS: BP 111/64
[2022-08-31] MEDS: PANTOPRAZOLE 40 MG TABLET.DR PO SCH (08:57)
[2022-08-31] MEDS: HEPARIN SODIUM, PORCINE 5000 UNITS/1 ML VIAL SQ SCH (08:58)
[2022-08-31] MEDS ORDERED: MAGNESIUM OXIDE 400 MG TABLET PO ONE (11:00)
[2022-08-31 12:00] VITALS: BP 115/60
[2022-08-31] MEDS ORDERED: NEUTRA PHOS 1 POWD.PACKET PO ONE (12:00)
== END 2022-08-31 16:43 | DRG 872 ==
LOC: ER 15:06 → MED 18:23 → TELE 19:37
PROVIDERS: ADMIT Nurse Practitioner Family
PROC: 0H96XZZ Drainage of Back Skin, External Approach (ICD-10-PCS; principal; 2022-08-29)
PROC: 05HB33Z Insertion of Infusion Device into Right Basilic Vein, Percutaneous Approach (ICD-10-PCS; 2022-08-29)
DX: A41.9 Sepsis, unspecified organism (principal); L02.212 Cutaneous abscess of back [any part, except buttock and flank]; E44.0 Moderate protein-calorie malnutrition; L03.312 Cellulitis of back [any part except buttock and flank]; E87.1 Hypo-osmolality and hyponatremia; G93.49 Other encephalopathy; R65.20 Severe sepsis without septic shock; E11.65 Type 2 diabetes mellitus with hyperglycemia; D63.8 Anemia in other chronic diseases classified elsewhere; Z20.822 Contact with and (suspected) exposure to COVID-19; I10 Essential (primary) hypertension; F31.9 Bipolar disorder, unspecified; Z88.8 Allergy status to other drugs, medicaments and biological substances; Z79.51 Long term (current) use of inhaled steroids; Z79.84 Long term (current) use of oral hypoglycemic drugs; Z79.4 Long term (current) use of insulin; Z79.899 Other long term (current) drug therapy; D69.6 Thrombocytopenia, unspecified; E87.5 Hyperkalemia; E88.09 Other disorders of plasma-protein metabolism, not elsewhere classified; Z87.09 Personal history of other diseases of the respiratory system; J44.9 Chronic obstructive pulmonary disease, unspecified; M19.90 Unspecified osteoarthritis, unspecified site; E83.39 Other disorders of phosphorus metabolism; F20.9 Schizophrenia, unspecified; L02.222 Furuncle of back [any part, except buttock and flank]; E83.42 Hypomagnesemia
CPT/HCPCS: 36410; 36415; 71045-TC; 80048-TC; 80076-TC; 80202-TC; 82962-TC; 83605-TC; 83735-TC; 84100-TC; 85025-TC; 87040-TC; 87081-TC; 97112-TC; 97116-TC; 97530-TC; A4223; A6253; A6403; A6407; C9803; G0378; J1644; J1815; J2060; J2543; J3370; J3475; J3490; J7030; J7040; J7050; J7060